=== PATIENT | female | born 1950 | race Asian ===

== ENCOUNTER 2020-05-10 11:01 | Outpatient (REF) | payer MEDICARE, SELFPAY ==
[2020-05-10 14:05] LABS: MANUAL DIFF FLAG NO
[2020-05-10 14:18] LABS: Basophils Absolute Auto 0.1 X10*3/uL (0.0-0.2); Basophils Percent Auto 0.8 % (0-2); Eosinophils Absolute Auto 0.2 X10*3/uL (0.0-0.4); Eosinophils Percent Auto 2.4 % (0-4); Hematocrit 38.1 % (37-47); Hemoglobin 11.8 g/dl (12.0-16.0); Imm Gran Abs Auto 0.03 X10*3/uL (0.00-0.03); Imm Gran Pct Auto 0.4 % (0.0-0.4); Lymphocytes Absolute Auto 2.5 X10*3/uL (1.2-4.9); Lymphocytes Percent Auto 29.7 % (20-40); Mean Corpuscular Hemoglobin 24.6 pg (27.0-33.0); Mean Corpuscular Volume 79.5 fL (80-98); Mean Platelet Volume 12.1 fL (9.4-12.3); Monocytes Absolute Auto 0.4 X10*3/uL (0.1-1.2); Monocytes Percent Auto 4.5 % (2-11); Neutrophils Absolute Auto 5.2 X10*3/uL (2.0-8.3); Neutrophils Percent Auto 62.2 % (45-73); Platelet Count 298 X10*3/uL (160-400); Red Blood Count 4.79 X10*6/uL (4.20-5.50); Red Cell Distribution Width 14.6 % (11.0-16.0); White Blood Count 8.4 X10*3/uL (4.8-10.8)
[2020-05-10 14:44] LABS: Alanine Aminotransferase 18 U/L (0-31); Albumin Level 4.1 g/dL (3.5-5.0); Alkaline Phosphatase 92 U/L (39-117); Anion Gap 16 (12-20); Aspartate Amino Transferase 21 U/L (5-31); Bilirubin Total 0.5 mg/dL (0.0-1.0); Blood Urea Nitrogen 21 mg/dL (9-16); Calcium 8.9 mg/dL (8.4-10.2); Carbon Dioxide 25 mmol/L (22-29); Chloride 104 mmol/L (96-108); Cholesterol 207 mg/dL; Estimated Glomerular Filt Rate > 60; Glucose Fasting 77 mg/dL (60-99); HDL Cholesterol 62 mg/dL; LDL Cholesterol Calculated 130 mg/dl; Potassium 4.2 mmol/L (3.3-5.1); Sodium 141 mmol/L (135-145); Total Protein 7.2 g/dL (6.5-8.0); Triglycerides 76 mg/dL
[2020-05-10 15:04] LABS: TSH reflex Free T4 2.36 uIU/mL (0.32-4.0)
== END 2020-05-10 11:02 | disposition home or self-care (01) ==
LOC: HO.HMGCLDS 11:01
PROVIDERS: Internal Medicine Medical Oncology; PCP Internal Medicine; Visit Provider Internal Medicine
DX: Z76.89 Persons encountering health services in other specified circumstances (principal); C34.90 Malignant neoplasm of unspecified part of unspecified bronchus or lung; T45.1X5A Adverse effect of antineoplastic and immunosuppressive drugs, initial encounter; I10 Essential (primary) hypertension; R29.898 Other symptoms and signs involving the musculoskeletal system; Z85.118 Personal history of other malignant neoplasm of bronchus and lung
CPT/HCPCS: 36415; 80053; 80061; 84443; 85025

== ENCOUNTER → 2020-05-20 10:42 | Outpatient (BNV) | payer MEDICARE, SELFPAY | PROVIDERS: Visit Provider Internal Medicine Medical Oncology | DX: C34.11 Malignant neoplasm of upper lobe, right bronchus or lung (principal) | CPT/HCPCS: 99213; 99214 ==

== ENCOUNTER 2020-09-06 13:16 | Outpatient (REF) | payer MEDICARE, SELFPAY ==
--- NOTE | ~2020-09-06 | XR_ITS ---
EXAMINATION: XR LUMBOSACRAL SPINE CLINICAL INFORMATION: Low back pain. COMPARISON: None TECHNIQUE: Three views of the lumbosacral spine. FINDINGS: The vertebral bodies and posterior elements are normal. The disc spaces are preserved and the vertebral alignment is normal. The paraspinal soft tissues are normal. XR/XR lumbar spine 2-3V IMPRESSION: Unremarkable lumbar spine exam.
== END 2020-09-06 13:17 | disposition home or self-care (01) ==
LOC: HO.HMGCX 13:16
PROVIDERS: PCP Internal Medicine; Visit Provider Internal Medicine
DX: M54.5 Low back pain (principal)
CPT/HCPCS: 72100

== ENCOUNTER 2020-10-31 14:00 | Outpatient (REF) | payer MEDICARE, SELFPAY ==
--- NOTE | ~2020-10-31 | MM_ITS ---
EXAMINATION: BONE DENSITOMETRY CLINICAL INDICATION: Asymptomatic menopausal state. COMPARISON: None (current study represents initial baseline exam). TECHNIQUE: Using a [facility] [employer] DXA System (software version: 13.1) manufactured by [employer], dual-energy x-ray absorptiometry was performed of the lumbar spine and left hip. The images are of good technical quality. Summary results are attached. FINDINGS: AP SPINE L1-L4: BMD 1.082 g/cm2, Z-score 0.9, T-score -0.8, normal. LEFT FEMUR, NECK: BMD 0.847 g/cm2, Z-score 0.3, T-score -1.4, osteopenia. LEFT FEMUR, TOTAL: BMD 0.953 g/cm2, Z-score 1.0, T-score -0.4, normal. IDENTIFIED RISK FACTORS: Recurrent falls, low calcium intake, menopause. HISTORY OF FRACTURE: None listed. MEDICATIONS: Calcium supplements or multivitamin, vitamin D. MM/XR DEXA axial skeleton IMPRESSION: 1. DIAGNOSIS: Osteopenia based on the lowest T-score value of -1.4 in the femoral neck applying World Health Organization criteria. 2. 10-YEAR FRACTURE RISK PREDICTION, FRAX: Major osteoporotic fracture (clinical spine, forearm, hip or shoulder) 5.2%. Hip fracture 0.7%. 3. Treatment Recommendations: NOF guidelines recommend consideration for treatment in postmenopausal women and men age 50 and older presenting with the following: -A hip or vertebral (clinical or morphometric) fracture. -T-score less than or equal to -2.5 at the femoral neck or spine after appropriate evaluation to exclude secondary causes. -Low bone mass at the hip or spine and a 10-year fracture probability by FRAX of greater than or equal to 3% for hip fracture or greater than or equal to 20% for major osteoporotic fracture based on the [place] adapted WHO algorithm. 4. Other Recommendations: All treatment decisions require clinical judgment and consideration of individual patient factors, including patient preferences, comorbidities, previous drug use, risk factors not captured in the FRAX model (e.g. frailty, falls, vitamin D deficiency, increased bone turnover, interval significant decline in bone density) and possible under or overestimation of fracture risk by FRAX. Additional medical evaluation for secondary cause of low bone mineral density may be appropriate. FUTURE SCAN RECOMMENDATION: People with diagnosed cases of osteoporosis or at high risk for fracture should have regular bone mineral density tests. For patients eligible for Medicare, routine testing is allowed once every 2 years. The testing frequency can be increased to one year for patients who have rapidly progressing disease, those who are receiving or discontinuing medical therapy to restore bone mass, or have additional risk factors.
--- NOTE | ~2020-10-31 | MM_ITS ---
EXAMINATION: MM SCREENING DIGITAL BREAST TOMOSYNTHESIS, BILATERAL CLINICAL INFORMATION: Screening. Asymptomatic. The lifetime risk of breast cancer based on the Tyrer-Cuzick Model is 5%. COMPARISON: Mammography: 01/21/2009 TECHNIQUE: Digital breast tomosynthesis is performed in both the craniocaudal and mediolateral oblique views along with computer-aided detection (CAD). Synthesized 2D images are generated from the tomosynthesis. Additional left MLO view is provided. FINDINGS: There are scattered areas of fibroglandular density (ACR BI-RADS breast composition Category b). There are no significant masses, abnormal calcifications, or other abnormalities. Parenchymal pattern distribution is similar to prior remote exam. The axilla and skin contours are unremarkable. MM/MM tomosynthesis screening BI IMPRESSION: No mammographic evidence of malignancy. ASSESSMENT: BI-RADS 1: Negative RECOMMENDATION: Routine annual mammography screening. This patient's information was entered into a reminder system with a target due date for their next mammogram.
== END 2020-10-31 14:01 | disposition home or self-care (01) ==
LOC: HO.MAMMO 14:00
PROVIDERS: PCP Internal Medicine; Visit Provider Internal Medicine
DX: Z12.31 Encounter for screening mammogram for malignant neoplasm of breast (principal); Z13.820 Encounter for screening for osteoporosis; M85.80 Other specified disorders of bone density and structure, unspecified site; Z78.0 Asymptomatic menopausal state; Z79.899 Other long term (current) drug therapy
CPT/HCPCS: 77063; 77067; 77080

== ENCOUNTER 2021-04-09 10:49 | Outpatient (REF) | payer MEDICARE, SELFPAY ==
[2021-04-09 13:51] LABS: MANUAL DIFF FLAG NO
[2021-04-09 13:54] LABS: Basophils Absolute Auto 0.1 X10*3/uL (0.0-0.2); Basophils Percent Auto 1.2 % (0-2); Eosinophils Absolute Auto 0.3 X10*3/uL (0.0-0.4); Eosinophils Percent Auto 4.5 % (0-4); Hematocrit 38.7 % (37.0-47.0); Imm Gran Abs Auto 0.03 X10*3/uL (0.00-0.03); Imm Gran Pct Auto 0.4 % (0.0-0.4); Lymphocytes Absolute Auto 2.7 X10*3/uL (1.2-4.9); Lymphocytes Percent Auto 35.7 % (20-40); Mean Corpuscular Hemoglobin 24.6 pg (27.0-33.0); Mean Corpuscular Volume 79.5 fL (80.0-98.0); Mean Platelet Volume 12.1 fL (9.4-12.3); Monocytes Absolute Auto 0.4 X10*3/uL (0.1-1.2); Neutrophils Percent Auto 53.2 % (45-73); Platelet Count 301 X10*3/uL (160-400); Red Blood Count 4.87 X10*6/uL (4.20-5.50); Red Cell Distribution Width 14.9 % (11.0-16.0); White Blood Count 7.6 X10*3/uL (4.8-10.8)
[2021-04-09 14:05] LABS: Alanine Aminotransferase 16 U/L (0-31); Albumin Level 4.1 g/dL (3.5-5.0); Alkaline Phosphatase 93 U/L (39-117); Anion Gap 12 (12-20); Aspartate Amino Transferase 21 U/L (5-31); Bilirubin Total 0.5 mg/dL (0.0-1.0); Blood Urea Nitrogen 17 mg/dL (9-16); Calcium 9.5 mg/dL (8.4-10.2); Carbon Dioxide 28 mmol/L (22-29); Chloride 105 mmol/L (96-108); Estimated Glomerular Filt Rate > 60; Glucose Random 84 mg/dL (60-115); Potassium 4.3 mmol/L (3.3-5.1); Sodium 141 mmol/L (135-145); Total Protein 7.3 g/dL (6.5-8.0)
== END 2021-04-09 10:50 | disposition home or self-care (01) ==
LOC: HO.HMGCLDS 10:49
PROVIDERS: Visit Provider Internal Medicine
DX: R10.13 Epigastric pain (principal); G25.81 Restless legs syndrome; I10 Essential (primary) hypertension; M19.90 Unspecified osteoarthritis, unspecified site
CPT/HCPCS: 36415; 80053; 85025

== ENCOUNTER 2021-07-01 10:06 | Outpatient (REF) | payer MEDICARE, SELFPAY ==
--- NOTE | ~2021-07-01 | XR_ITS ---
EXAMINATION: XR CHEST CLINICAL INFORMATION: Chest pain. History of lobectomy. COMPARISON: Previous chest x-ray most recent [address] 2017 TECHNIQUE: 2 views of the chest were obtained. FINDINGS: There are postsurgical changes to the right hemithorax and elevation of the right hemidiaphragm. This is similar to previous exams. The cardiac and mediastinal contours are stable. The lungs are clear. There is no pleural effusion or pneumothorax. There are degenerative changes of the spine. XR/XR chest 2V IMPRESSION: Stable postsurgical changes to the right hemithorax and elevation of the right hemidiaphragm. No evidence for acute disease in the chest.
[2021-07-01 11:28] LABS: MANUAL DIFF FLAG NO
[2021-07-01 11:58] LABS: Basophils Absolute Auto 0.1 X10*3/uL (0.0-0.2); Basophils Percent Auto 0.6 % (0-2); Eosinophils Absolute Auto 0.1 X10*3/uL (0.0-0.4); Eosinophils Percent Auto 1.3 % (0-4); Hemoglobin 12.3 g/dl (12.0-16.0); Imm Gran Abs Auto 0.02 X10*3/uL (0.00-0.03); Imm Gran Pct Auto 0.2 % (0.0-0.4); Lymphocytes Percent Auto 23.4 % (20-40); Mean Corpuscular HGB Conc 30.8 g/dl (31.0-35.0); Mean Corpuscular Hemoglobin 23.9 pg (27.0-33.0); Mean Corpuscular Volume 77.7 fL (80.0-98.0); Monocytes Absolute Auto 0.6 X10*3/uL (0.1-1.2); Monocytes Percent Auto 6.5 % (2-11); Neutrophils Absolute Auto 5.9 x10*3/uL (2.0-8.3); Platelet Count 217 X10*3/uL (160-400); Red Blood Count 5.15 X10*6/uL (4.20-5.50); Red Cell Distribution Width 14.5 % (11.0-16.0); White Blood Count 8.7 X10*3/uL (4.8-10.8)
[2021-07-01 12:14] LABS: Troponin-I High Sensitivity 3.5 ng/L (<3.5-17.0)
[2021-07-01 12:18] LABS: Alanine Aminotransferase 23 U/L (0-31); Albumin Level 4.1 g/dL (3.5-5.0); Alkaline Phosphatase 97 U/L (39-117); Anion Gap 12 (12-20); Aspartate Amino Transferase 24 U/L (5-31); Bilirubin Total 0.7 mg/dL (0.0-1.0); Blood Urea Nitrogen 15 mg/dL (9-16); Calcium 9.6 mg/dL (8.4-10.2); Carbon Dioxide 29 mmol/L (22-29); Chloride 98 mmol/L (96-108); Estimated Glomerular Filt Rate > 60; Glucose Random 86 mg/dL (60-115); Potassium 3.7 mmol/L (3.3-5.1); Sodium 135 mmol/L (135-145); Total Protein 7.5 g/dL (6.5-8.0)
== END 2021-07-01 10:07 | disposition home or self-care (01) ==
LOC: HO.WFDLDS 10:06
PROVIDERS: PCP Internal Medicine; Visit Provider Family Medicine
DX: Z00.01 Encounter for general adult medical examination with abnormal findings (principal); R07.9 Chest pain, unspecified
CPT/HCPCS: 36415; 71046; 80053; 84484; 85025

== ENCOUNTER → 2021-10-15 14:02 | Outpatient (BNVA) | payer BC, MEDICARE, SELFPAY | PROVIDERS: PCP Internal Medicine; Referring Provider Internal Medicine; Visit Provider Internal Medicine Cardiovascular Disease | DX: R00.2 Palpitations (principal); I10 Essential (primary) hypertension; R06.00 Dyspnea, unspecified | CPT/HCPCS: 99202 ==

== ENCOUNTER → 2021-11-06 08:39 | Outpatient (REF) | payer MEDICARE, SELFPAY ==
--- NOTE | 2021-11-06 08:51 | CA_ITS ---
Transthoracic Echocardiogram Patient (Last, First, Middle): Christi Bonds, Gender: Female Date of : 1950 Age: 71 Procedure Date: 11/06/2021 Procedure Type: Transthoracic Echocardiogram Location: OP Height: 147.32 cm Weight: 63.5 kg BSA: 1.57 m2 Heart Rate: bpm BP: 136 / 84 mmHg Hair [employer] Manager: SERAFIN Referring MD: Yoav Russo MD Symptoms: R06.00 - Dyspnea, unspecified Study Quality: Adequate ECG Rhythm: Sinus Conclusions: - The left ventricular systolic function is normal. The calculated ejection fraction is 69% by biplane method. - No obvious valvular pathology seen on this study. Findings Left Ventricle Normal left ventricular cavity size. There is normal left ventricular wall thickness. The left ventricular systolic function is normal. The calculated ejection fraction is 69% by biplane method. There is no evidence of regional wall motion abnormalities. Diastolic function is normal for age. Right Ventricle Normal right ventricular cavity size and systolic function. Atria Both atria are normal in size. Aortic Valve There is a normal trileaflet aortic valve. There is no aortic valve stenosis. There is trace (trivial) aortic valve regurgitation. Mitral Valve The mitral valve appears normal. There is trace mitral valve regurgitation. There is no mitral valve stenosis. Pulmonic Valve The pulmonic valve is likely normal. Tricuspid Valve There is trace tricuspid valve regurgitation. There is no evidence of pulmonary hypertension. Great Vessels The aortic annulus, sinuses of valsalva, and asc aorta are normal in size. Venous The inferior vena cava is normal in size and collapses greater than 50% with inspiration. Pericardium/Pleural There is no evidence of pericardial effusion. Prior Study Comparison No significant change compared to prior study dated: 11/10/2012. Recommendations, Care & Conclusions No obvious valvular pathology seen on this study. Measurements 2D Linear Measurements IVSd: 0.84 0.6-0.9/0.6-1.0 cm LVIDd: 4.18 3.9-5.3/4.2-5.9 cm LVIDd Index: 2.66 2.4-3.2/2.2-3.1 cm/m2 LVIDs: 2.52 2.0-3.6 cm LVPWd: 0.86 0.7-1.1 cm LA Diam: 3.20 2.7-3.8/3.0-4.0 cm LAIDs Index: 2.04 1.5-2.3 cm/m2 LV Mass: 134.61 67-162/88-224 g LV Mass Index: 85.74 43-95/49-115 g/m2 LVOT Diam: 1.70 3.0+(-)1.3 cm 2D Systolic Function EF 4C: 70.50 >55% EF 2C: 65.90 >55% EF BiP: 69.00 >55% Mitral Valve MV Pk E: 0.75 MV PK A: 0.81 MV Decel Time: 244.00 E/A: 0.90 E'Lateral: 7.62 E'Medial: 5.22 E/E' Med: 14.40 E/E' Lat: 9.90 PHT: 72.00 MVA PHT: 3.06 Decel Vermillion: 3.09 Aortic Valve AoV Pk Anderson: 1.21 AoV Mn Anderson: 0.72 AoV VTI: 0.26 AoV Pk Grad: 6.00 Aov Mn Grad: 3.00 CONNOR Cont.VTI: 2.18 LVOT LVOT Pk Anderson: 1.03 LVOT Mn Anderson: 0.68 LVOT VTI: 0.25 LVOT Pk Grad: 4.00 LVOT Mn Grad: 2.00 LVOT Diam: 1.70 LVOT Area: 2.27 Diastolic Function MV Pk E: 0.75 MV Pk A: 0.81 E/A: 0.90 E'Medial: 5.22 E/E' Med: 14.40 E' Laterial: 7.62 E/E' Lat: 9.90 Right Ventricle TAPSE (mm): 19.50 TVS' Anderson: 8.16 Tricuspid Valve TR Pk Anderson: 2.09 TR Pk Grad: 17.00 RA Press: 3.00 RVSP: 20.00 Great Vessels Aorta Sinus of Valsalva: 2.90 2.0-3.5 cm Ao Asc: 3.40 2.1-3.4 cm Updated in Other Vendor System with Status of Final Cayetano Duncan MD electronically signed on 11/07/2021 2:56:48 PM with status of Final
== END ==
LOC: HO.CARD 08:39
PROVIDERS: PCP Internal Medicine; Visit Provider Internal Medicine Cardiovascular Disease
DX: R00.2 Palpitations (principal); R06.00 Dyspnea, unspecified
CPT/HCPCS: 93306

== ENCOUNTER → 2021-12-23 07:02 | Outpatient (REF) | payer MEDICARE, SELFPAY ==
--- NOTE | ~2021-12-23 | NM_ITS ---
Myocardial perfusion study Indication: Shortness of breath evaluate for myocardial ischemia Technique: The patient was brought in for a Lexiscan perfusion study on 12/23/2021. Patient performed low-level exercise and was injected 0.4 mg of Lexiscan intravenously. Within a minute of injection, 24 mCi of sestamibi was given intravenously. Images were obtained using the SPECT gamma camera interlaced with the gating device. Images were obtained in supine position. Resting perfusion study was performed on 12/23/2021. Patient was administered 8 mCi of sestamibi intravenously at rest. Images were then obtained in supine position. Images obtained with and without CT attenuation. Total DLP 81 mGy-cm. Images were processed with the software and compared side to side in short axis, horizontal long axis and vertical long axis views. Findings: The stress perfusion study showed both attenuated as well as non attenuated images show normal uptake of radiotracer in all segments of LV myocardium. There is suggestion of left ventricular hypertrophy. The gated study shows normal LV systolic function with calculated LVEF of greater than 70%. LV cavity is normal in size. The gated study shows normal systolic wall thickening and contraction of segments. Resting study shows no change in perfusion pattern compared to stress perfusion study. Gating at rest reveals normal systolic wall motion with ejection fraction at greater than 70%. The findings are consistent with normal myocardial perfusion. NM/NM truong perf SPECT rest & str Impression: 1. Myocardial perfusion imaging study shows normal myocardial perfusion 2. Gated LVEF is greater than 70% 3. Transient ischemic dilatation not present EKG is nondiagnostic for ischemia
--- NOTE | 2021-12-23 09:56 | HM_ITS ---
* Total monitoring time 7 days. * Underlying rhythm is sinus. Average ventricular rate 81/Min. Range 48 to 145/Min. About 12% the time, rate > 100/Min. * Very rare supraventricular ectopy. Minimal burden. * No pauses or AV blocks. * Patient marker was used once with sinus rhythm. MTDD
--- NOTE | 2021-12-23 10:05 | CA_ITS ---
Acquisition Time: 2021-12-23 08:10:16 Total Exercise Time: 00:02:00 Test Indications: Dyspnea Medications: METOPROLOL NAPROXEN OMEPRAZOLE Protocol: LEXISCAN Max HR: 101 BPM 67% of Pred: 149 BPM Max BP: 134/072 mmHG Max Work Load: 1.0 METS Pharmacological stress test with Lexiscan injection, while sitting and kicking her legs, with mild to moderate sob, no chest discomfort, without arrythmia, with normotensive response to injection, with nondiagnostic EKG for ischemia. In recovery she was treated with Aminophylline 75mg IVP to reverse Lexiscan with resolution of sob. Nuclear images pending. Test reviewed with Dr Russo. Referred By: Yoav Russo Overread By: TRISTEN PRESSLEY
== END ==
LOC: HO.CARD 07:02
PROVIDERS: PCP Internal Medicine; Visit Provider Internal Medicine Cardiovascular Disease
DX: R00.2 Palpitations (principal); R06.00 Dyspnea, unspecified
CPT/HCPCS: 78452; 93017; 93242; A9500; J0280; J2785

== ENCOUNTER → 2022-05-07 14:24 | Outpatient (BNVA) | payer MEDICARE, SELFPAY | PROVIDERS: PCP Internal Medicine; Visit Provider Nurse Practitioner Family | DX: I10 Essential (primary) hypertension (principal); R55 Syncope and collapse; R06.00 Dyspnea, unspecified | CPT/HCPCS: 99212 ==

== ENCOUNTER 2022-05-27 12:59 | Outpatient (REF) | payer MEDICARE, SELFPAY ==
[2022-05-27 14:17] LABS: MANUAL DIFF FLAG NO
[2022-05-27 14:21] LABS: Basophils Absolute Auto 0.1 X10*3/uL (0.0-0.2); Basophils Percent Auto 1.2 % (0-2); Eosinophils Absolute Auto 0.3 X10*3/uL (0.0-0.4); Eosinophils Percent Auto 3.2 % (0-4); Hematocrit 38.5 % (37.0-47.0); Hemoglobin 12.3 g/dl (12.0-16.0); Imm Gran Abs Auto 0.02 X10*3/uL (0.00-0.03); Imm Gran Pct Auto 0.2 % (0.0-0.4); Lymphocytes Absolute Auto 3.1 X10*3/uL (1.2-4.9); Lymphocytes Percent Auto 35.8 % (20-40); Mean Corpuscular HGB Conc 31.9 g/dl (31.0-35.0); Mean Corpuscular Hemoglobin 24.8 pg (27.0-33.0); Mean Corpuscular Volume 77.8 fL (80.0-98.0); Mean Platelet Volume 12.2 fL (9.4-12.3); Monocytes Absolute Auto 0.5 X10*3/uL (0.1-1.2); Monocytes Percent Auto 6.1 % (2-11); Neutrophils Absolute Auto 4.6 x10*3/uL (2.0-8.3); Neutrophils Percent Auto 53.5 % (45-73); Platelet Count 291 X10*3/uL (160-400); Red Blood Count 4.95 X10*6/uL (4.20-5.50); Red Cell Distribution Width 14.9 % (11.0-16.0); White Blood Count 8.7 X10*3/uL (4.8-10.8)
[2022-05-27 14:53] LABS: Alanine Aminotransferase 14 U/L (0-31); Albumin Level 4.1 g/dL (3.5-5.0); Alkaline Phosphatase 93 U/L (39-117); Anion Gap 12 (12-20); Aspartate Amino Transferase 19 U/L (5-31); Bilirubin Total 0.4 mg/dL (0.0-1.0); Blood Urea Nitrogen 21 mg/dL (9-16); Calcium 9.4 mg/dL (8.4-10.2); Carbon Dioxide 25 mmol/L (22-29); Chloride 106 mmol/L (96-108); Estimated Glomerular Filt Rate > 60; Glucose Random 90 mg/dL (60-115); Potassium 4.3 mmol/L (3.3-5.1); Sodium 139 mmol/L (135-145); Total Protein 7.2 g/dL (6.5-8.0)
[2022-05-27 15:07] LABS: TSH reflex Free T4 1.83 uIU/mL (0.32-4.0); Vitamin B12 407 pg/mL (200-900)
[2022-05-28 11:28] LABS: LDL Cholesterol Direct 130 mg/dL (<100)
[2022-06-05 13:14] LABS: Vitamin D 25-OH, D2 <4 ng/mL; Vitamin D 25-OH, D3 20 ng/mL; Vitamin D 25-OH, Total 20 ng/mL (30-100)
== END 2022-05-27 13:00 | disposition home or self-care (01) ==
LOC: HO.HMGCLDS 12:59
PROVIDERS: PCP Internal Medicine; Visit Provider Internal Medicine
DX: I10 Essential (primary) hypertension (principal); R10.13 Epigastric pain; F41.1 Generalized anxiety disorder; D64.9 Anemia, unspecified; R53.83 Other fatigue
CPT/HCPCS: 36415; 80053; 82306; 82607; 83721; 84443; 85025

== ENCOUNTER 2022-09-29 13:02 | Outpatient (AMB) | payer MEDICARE, SELFPAY ==
--- NOTE | 2022-09-29 13:15 | A.OFFPC_ITS ---
Vital Signs 09/29/22 13:16 Height 4 ft 10.5 in Weight 136 lb 6 oz BMI 28.0 BP 130/72 Blood Pressure Location Rt brachial Position Sitting Pulse 66 Pulse Source Pulse Oximeter Pulse Oximetry (%) 99 Oxygen Delivery Method Room Air Intake Visit Reasons: 3m follow up Allergies penicillin V Allergy (Unknown, Verified 09/29/22 13:16) unknown lorazepam [From ATIVAN] Adverse Reaction (Unknown, Verified 09/29/22 13:16) HALLUCINATIONS Latex Gloves Allergy (Unknown, Uncoded 08/25/22 10:04) unknown Medication List - Last Reconciled 09/29/22 by Cary Man MD acetaminophen (Tylenol) 325 mg PO QID PRN amlodipine 5 mg PO DAILY ascorbic acid (vitamin C) 25 mg PO DAILY aspirin (Adult Aspirin Regimen) 81 mg PO DAILY cholecalciferol (vitamin D3) (Vitamin D3) 25 mcg PO DAILY folic acid 5 mg PO 2XW metoprolol succinate ER 25 mg PO DAILY 90 days omeprazole 20 mg PO DAILY 90 days Tobacco use date assessed: 09/29/22 Fall risk assessment: No Falls in past year Last assessed Fall Risk: 09/29/22 Dental Screening Dental Screen Date: 09/29/22 Did you have a dental visit in the last 12 months?: Yes Did you have a dental problem in the last 6 months where you did not have access to dental care?: No Was dental information given to patient?: No HPI 3m follow up HPI0 Details Patient is 72-year-old female came in today for her regular follow-up appointment on blood pressure Labs done recently reviewed her hemoglobin is normal now 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 which shows microcytic indices Patient is taking amlodipine 5 mg and metoprolol 25 mg, blood pressure is well controlled patient is tolerating medication GERD is stable with omeprazole 20 mg Patient will attend early week of January for follow-up now, she has cardiology appointment next month [facility] Medical History Hypertension Lung cancer Surgical History H/O section History of lung surgery Family History Mother Heart failure Father Heart attack Paternal Aunt Gallbladder cancer Social History Household Members: Spouse and Children Housing: House Are you a primary wound care coordinator to a significant other at home: No Do you presently have visiting nurse or other home services: No Alcohol intake: never Patient Tobacco Use Status: Never used Tobacco e-Cigarette/Vaping Use: Never Used service: No Current occupational status: retired Cognitive needs: No Hearing needs: No Vision needs: Yes Questionnaire PHQ-9 Over the last 2 weeks, how often have you been bothered by any of the following problems? 1. Little interest or pleasure in doing things: not at all 2. Feeling down, depressed, or hopeless: not at all 3. Trouble falling or staying asleep, or sleeping too much: not at all 4. Feeling tired or having little energy: several days 5. Poor appetite or overeating: not at all 6. Feeling bad about yourself - or that you are a failure or have let yourself or your family down: not at all 7. Trouble concentrating on things, such as reading the newspaper or watching television: not at all 8. Moving or speaking so slowly that other people could have noticed. Or the opposite - being so fidgety or restless that you have been moving around a lot more than usual: not at all 9. Thoughts that you would be better off or of hurting yourself in some way: not at all Total score: 1 Depression Screening Interpretation: Negative Source: Developed by Drs. Trey Bourgeois, Tia Doan, Arnav Llanos and colleagues, with an educational reyna from [employer]. Thrive Questionnaire Date Thrive assessed: 09/29/22 I am a: Patient What is your living situation today?: I have a steady place to live Within the past 12 months, did the food you bought not last and you didn't have the money to get more?: I choose not to answer this question Do you have trouble paying for medicines?: Yes Do you have trouble getting transportation to medical appointments?: No Do you have trouble paying your heating and electricity bill?: Yes Do you have trouble taking care of your child, family member or friend?: I choose not to answer this question Do you have trouble with day-to-day activities such as bathing, preparing meals, shopping, managing finances, etc.?: Yes Are you currently unemployed and looking for a job?: Yes Are you interested in more education?: Yes Please select the resources that you would like help with: Paying for medicine and Utilities AUDIT C Alcohol Use Questionnaire (AUDIT-C) 1. How often do you have a drink containing alcohol?: Never 3. How often do you have six or more drinks on one occasion?: Never Total Score: 0 Score Reviewed/Action Taken: Yes SEE-7 AMB Questionnaire SEE-7 Date SEE - 7 assessed: 09/29/22 Feeling nervous, anxious, or on edge: 0 = Not at all Not being able to stop or control worryin = Not at all Worrying too much about different things: 0 = Not at all Trouble relaxin = Not at all Being so restless that it is hard to sit still: 0 = Not at all Becoming easily annoyed or irritable: 0 = Not at all Feeling afraid as if something awful might happen: 0 = Not at all Total SEE-7 score (0-4 normal; 5-9 mild; 10-14 moderate; 15-21 severe): 0 Source: Developed by Drs. Trey Bourgeois, Tia Doan, Arnav Llanos and colleagues, with an educational reyna from [employer]. SEE-7 Assessment Billing SEE-7 Assessment Tool: SEE-7 Assessment 75481 Review of Systems Const Denies chills and Denies fever(s) ENT Denies epistaxis and Denies nasal discharge Card Denies chest pain Resp Denies chest congestion, Denies cough and Denies hemoptysis GI Denies diarrhea and Denies nausea Skin/Breast Denies rash Neuro Reports no additional complaints Psych Reports no additional complaints Endo Reports no additional complaints Physical exam (Primary Care) Vital Signs: Last Vital Signs Pulse 66 09/29/22 13:16 BP 130/72 09/29/22 13:16 Pulse Ox 99 09/29/22 13:16 Oxygen Delivery Method Room Air 09/29/22 13:16 BMI result Body Mass Index 28.0 Tobacco/Smoking Status: Tobacco use Status Tobacco use date assessed 09/29/22 09/29/22 13:17 Patient Tobacco Use Status Never used Tobacco 09/29/22 13:17 e-Cigarette/Vaping Use Never Used 09/29/22 13:17 PHQ-9: PHQ-9 Score PHQ-9: Total score 1 09/29/22 13:37 Depression Screening Interpretation: Negative Thrive Assessment: Date of Thrive Assessment Date Thrive assessed 09/29/22 09/29/22 13:37 Const General: cooperative, comfortable and no acute distress Orientation/consciousness: patient oriented x3 HENMT Head: Yes normocephalic Eyes General: appearance normal, both eyes and all related structures Neck Neck: Yes supple Resp Effort & Inspection: normal respiratory effort, no cough and no stridor Cardio Rhythm: regular rhythm Heart sounds: S1 normal heart sound present and S2 normal heart sound present Skin General skin exam: turgor normal Neuro General: patient oriented x3, tone normal and moves all extremities Extrem Right lower extremity: no edema Left lower extremity: no edema Assessment and Plan Assessment & Plan (1) Hypertension, essential: Code(s): I10 - Essential (primary) hypertension (2) Dyspepsia: Code(s): R10.13 - Epigastric pain (3) Arthrosis: Code(s): M19.90 - Unspecified osteoarthritis, unspecified site (4) Muscle cramping: Code(s): R25.2 - Cramp and spasm Plan Patient is 72-year-old female came in today for her regular follow-up appointment on blood pressure Labs done recently reviewed her hemoglobin is normal now 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 which shows microcytic indices Patient is taking amlodipine 5 mg and metoprolol 25 mg, blood pressure is well controlled patient is tolerating medication GERD is stable with omeprazole 20 mg Patient will attend early week of January for follow-up now, she has cardiology appointment next month Complaining of muscle cramping which is getting worse, I have prescribed muscle relaxer that she can take at night as needed Medications: New cyclobenzaprine 5 mg PO BEDTIME 30 tabs 0RF 30 days M54.9 - Dorsalgia, unspecified Coding Level of Care Code Est Pt Level 3 (87847) Diagnoses Hypertension, essential I10 Dyspepsia R10.13 Arthrosis M19.90 Muscle cramping R25.2 Additional Codes SEE-7 Assessment Billing - SEE-7 Assessment Tool: SEE-7 Assessment [id number] ([id number])
[2022-09-29 13:16] VITALS: BP 130/72; PULSE 66; O2SAT 99; BMI 28.0
== END 2022-09-29 13:48 | disposition home or self-care (01) ==
PROVIDERS: Visit Provider Internal Medicine
DX: I10 Essential (primary) hypertension (principal); R10.13 Epigastric pain; M19.90 Unspecified osteoarthritis, unspecified site; R25.2 Cramp and spasm
CPT/HCPCS: 99213

== ENCOUNTER 2022-10-28 14:42 | Outpatient (AMB) | payer MEDICARE, SELFPAY ==
[2022-10-28 14:47] VITALS: BP 140/82; PULSE 64; BMI 28.6
--- NOTE | 2022-10-28 14:47 | A.OFFVIS_ITS ---
Intake Vital Signs 10/28/22 14:47 Height 4 ft 10 in Weight 136 lb 10.986 oz BMI 28.6 BP 140/82 H Blood Pressure Location Rt brachial Position Sitting Pulse 64 Intake Visit Reasons: 6 month follow up Intake Note: 6 month f/u Allergies penicillin V Allergy (Unknown, Verified 10/28/22 15:01) unknown lorazepam [From ATIVAN] Adverse Reaction (Unknown, Verified 10/28/22 15:01) HALLUCINATIONS Latex Gloves Allergy (Unknown, Uncoded 08/25/22 10:04) unknown Medication List - Last Reconciled 10/28/22 by Yoav Russo MD acetaminophen (Tylenol) 325 mg PO QID PRN amlodipine 5 mg PO DAILY ascorbic acid (vitamin C) 25 mg PO DAILY aspirin (Adult Aspirin Regimen) 81 mg PO DAILY cholecalciferol (vitamin D3) (Vitamin D3) 25 mcg PO DAILY folic acid 5 mg PO 2XW metoprolol succinate ER 25 mg PO DAILY 90 days omeprazole 20 mg PO DAILY 90 days tizanidine 2 mg PO BEDTIME PRN 30 days HPI HPI Comments History of Present Illness Details Pleasant 72-year-old female who is here for few complaints. She has background history of hypertension and previously was on metoprolol and amlodipine. Amlodipine was discontinued and she does not remember having any side effects from amlodipine. She is seeing her blood pressure has been fluctuating and has been quite high at times. She has been using amlodipine as needed. She is taking Toprol 25 mg once a day. She also has palpitations which happen for few minutes every few days. 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 She is saying her breathing has been of since the cancer diagnosis and she has been short of breath. She gets out of breath easily when she walks. She is denying any chest discomfort. No bleeding issues. Her previous EKGs showing biphasic precordial T-wave changes. 10/28/2022: She returns for follow-up. On previous visit we referred her for echocardiography and nuclear perfusion imaging. Nuclear perfusion imaging was normal. She had 7 day Holter monitor which did not show any significant arrhythmia. Echocardiography showed normal left ventricular ejection fraction without any wall motion abnormalities with normal diastolic function. Normal right ventricular function without any valvular pathology. She returns and is complaining of some chest pains. These are random and happen without exertion. She can put 1 finger at the area where the pain happens and the pain is reproducible. I have reassured her that this is musculoskeletal pain. She has other complaints like Raynaud's and I have advised her that we can try to increase the amlodipine little bit to see if that helps the symptoms. She is saying she is doing better doing summertime and will think about it as winter comes. She has some dyspnea and fatigue with activities which is due to deconditioning given her cancer chemotherapy and staying in wheelchair for many months. [facility] Medical History Hypertension Lung cancer Surgical History History of lung surgery H/O section Family History Mother Heart failure Father Heart attack Paternal Aunt Gallbladder cancer Social History Household Members: Spouse and Children Housing: House Are you a primary residential care officer to a significant other at home: No Do you presently have visiting nurse or other home services: No Alcohol intake: never Patient Tobacco Use Status: Never used Tobacco e-Cigarette/Vaping Use: Never Used service: No Current occupational status: retired Cognitive needs: No Hearing needs: No Vision needs: Yes Review of Systems ENT Reports dizziness Card Denies chest pain, Denies chest pain at rest, Denies chest pain with activity, Denies rapid heart rate, Denies pedal edema, Denies edema, Denies leg edema, Denies lightheadedness, Denies palpitations, Denies dyspnea, Denies dyspnea on exertion and Denies orthopnea Resp Denies cough, Denies dyspnea and Denies dyspnea on exertion GI Denies hematochezia and Denies change in stool character Musc Denies abnormal gait, Reports limited range of motion, Reports muscle cramps, Denies muscle weakness, Denies numbness, Denies radiating pain into limb, Denies stiffness and Denies tingling Neuro Denies abnormal gait, Reports dizziness, Denies numbness and Denies tingling Endo Denies palpitations Physical Exam Vital Signs: Last Vital Signs Pulse 64 10/28/22 14:47 BP 140/82 H 10/28/22 14:47 BMI result Body Mass Index 28.6 GENERAL APPEARANCE: in no acute distress, pleasant. NECK: no carotid bruit, no jugular venous distention. SKIN: no suspicious lesions, warm and dry. HEART: no murmurs, regular rate and rhythm. LUNGS: clear to auscultation bilaterally. ABDOMEN: soft, nontender. EXTREMITIES: no edema. PERIPHERAL PULSES: equal. NEUROLOGIC: No gross deficits, AAO X 3 Office Procedures EKG Details: Sinus rhythm 64 beats per minute, normal axis, nonspecific T-wave changes, QTC 387 milliseconds. [id number], Complete Assessment & Plan Assessment & Plan (1) Dyspnea: Code(s): R06.00 - Dyspnea, unspecified (2) Chest pain: Code(s): R07.9 - Chest pain, unspecified Plan Very pleasant 72 year female who is here for follow-up. Blood pressure control is okay. She gets back pains with activity and currently is having some back pain and probably that is why blood pressure is mildly elevated. I have advised her that if Raynaud's the big issue then we can increase the amlodipine to 7.5 mg once a day. Currently she wants to wait and see how things are in winter time. She has non anginal chest pain. No further workup is required for that. Dyspnea and fatigue are due to deconditioning. I have advised her to increase her physical activity. Thank you for allowing me to participate in the care of your patient. Please feel free to contact me if you have any questions. Coding Level of Care Code Est Pt Level 1 (22324) Diagnoses Dyspnea R06.00 Chest pain R07.9 CPT Codes EKG - CPT: 69688-[id number], Complete ([id number])
== END 2022-10-28 15:33 | disposition home or self-care (01) ==
PROVIDERS: Visit Provider Internal Medicine Cardiovascular Disease
DX: R06.00 Dyspnea, unspecified (principal); R07.9 Chest pain, unspecified
CPT/HCPCS: 93010

== ENCOUNTER → 2022-10-28 14:42 | Outpatient (BNVA) | payer MEDICARE, SELFPAY | PROVIDERS: Visit Provider Internal Medicine Cardiovascular Disease | DX: R06.00 Dyspnea, unspecified (principal); R07.9 Chest pain, unspecified | CPT/HCPCS: 93005; 99211 ==

== ENCOUNTER 2023-03-03 09:18 | Outpatient (AMB) | payer MEDICARE, SELFPAY ==
--- NOTE | 2023-03-03 09:36 | A.OFFPC_ITS ---
Vital Signs 03/03/23 09:37 Height 4 ft 10.5 in Weight 139 lb 6 oz BMI 28.6 BP 132/70 Blood Pressure Location Rt brachial Position Sitting Pulse 65 Pulse Source Pulse Oximeter Pulse Oximetry (%) 97 Oxygen Delivery Method Room Air Intake Visit Reasons: 4 month f/u Allergies penicillin V Allergy (Unknown, Verified 03/03/23 09:37) unknown lorazepam [From ATIVAN] Adverse Reaction (Unknown, Verified 03/03/23 09:37) HALLUCINATIONS Latex Gloves Allergy (Unknown, Uncoded 08/25/22 10:04) unknown Medication List - Last Reconciled 03/03/23 by Cary Man MD acetaminophen (Tylenol) 325 mg PO QID PRN amlodipine 5 mg PO DAILY ascorbic acid (vitamin C) 25 mg PO DAILY aspirin (Adult Aspirin Regimen) 81 mg PO DAILY cholecalciferol (vitamin D3) (Vitamin D3) 25 mcg PO DAILY folic acid 5 mg PO 2XW metoprolol succinate ER 25 mg PO DAILY 90 days omeprazole 20 mg PO DAILY 90 days tizanidine 2 mg PO BEDTIME PRN 30 days Tobacco use date assessed: 03/03/23 Fall risk assessment: No Falls in past year Last assessed Fall Risk: 03/03/23 Dental Screening Dental Screen Date: 03/03/23 Did you have a dental visit in the last 12 months?: No Did you have a dental problem in the last 6 months where you did not have access to dental care?: No Was dental information given to patient?: No HPI 4 month f/u HPI Details Patient is 72-year-old female came in today for her regular follow-up appointment on blood pressure Patient is a survivor of [id number] lung cancer Anemia: 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 which shows microcytic indices Patient is taking amlodipine 5 mg and metoprolol 25 mg, blood pressure is well controlled patient is tolerating medication GERD is stable with omeprazole 20 mg Complaining of headache off and on, also admit that she is not paying attention to her eating habits and sleep Labs are due today Follow-up 6 months [facility] Medical History Lung cancer Hypertension Surgical History History of lung surgery H/O section Family History Mother Heart failure Father Heart attack Paternal Aunt Gallbladder cancer Social History Household Members: Spouse and Children Housing: House Are you a primary career technology teacher to a significant other at home: No Do you presently have visiting nurse or other home services: No Alcohol intake: never Patient Tobacco Use Status: Never used Tobacco e-Cigarette/Vaping Use: Never Used service: No Current occupational status: retired Cognitive needs: No Hearing needs: No Vision needs: Yes Questionnaire Thrive Questionnaire Date Thrive assessed: 09/29/22 AUDIT C Alcohol Use Questionnaire (AUDIT-C) 1. How often do you have a drink containing alcohol?: Never 3. How often do you have six or more drinks on one occasion?: Never Total Score: 0 Score Reviewed/Action Taken: Yes SEE-7 AMB Questionnaire SEE-7 Date SEE - 7 assessed: 09/29/22 Source: Developed by Drs. Trey Bourgeois, Tia Doan, Arnav Llanos and colleagues, with an educational reyna from [employer]. Review of Systems Const Denies chills and Denies fever(s) ENT Denies epistaxis and Denies nasal discharge Card Denies chest pain Resp Denies chest congestion, Denies cough and Denies hemoptysis GI Denies diarrhea and Denies nausea Skin/Breast Denies rash Neuro Reports no additional complaints Psych Reports no additional complaints Endo Reports no additional complaints Physical exam (Primary Care) Vital Signs: Last Vital Signs Pulse 65 03/03/23 09:37 BP 132/70 03/03/23 09:37 Pulse Ox 97 03/03/23 09:37 Oxygen Delivery Method Room Air 03/03/23 09:37 BMI result Body Mass Index 28.6 Tobacco/Smoking Status: Tobacco use Status Tobacco use date assessed 03/03/23 03/03/23 09:38 Patient Tobacco Use Status Never used Tobacco 03/03/23 09:38 e-Cigarette/Vaping Use Never Used 03/03/23 09:38 Thrive Assessment: Date of Thrive Assessment Date Thrive assessed 09/29/22 03/03/23 09:38 Const General: cooperative, comfortable and no acute distress Orientation/consciousness: patient oriented x3 HENMT Head: Yes normocephalic Eyes General: appearance normal, both eyes and all related structures Neck Neck: Yes supple Resp Effort & Inspection: normal respiratory effort, no cough and no stridor Cardio Rhythm: regular rhythm Heart sounds: S1 normal heart sound present and S2 normal heart sound present Skin General skin exam: turgor normal Neuro General: patient oriented x3, tone normal and moves all extremities Extrem Right lower extremity: no edema Left lower extremity: no edema Assessment and Plan Assessment & Plan (1) Anxiety, generalized: Code(s): F41.1 - Generalized anxiety disorder (2) Anemia: Code(s): D64.9 - Anemia, unspecified Qualifiers: Anemia type: other cause Other causes of anemia: chronic disease, other Qualified Code(s): D63.8 - Anemia in other chronic diseases classified elsewhere (3) Dyspepsia: Code(s): R10.13 - Epigastric pain (4) Non-small cell lung cancer: Code(s): C34.90 - Malignant neoplasm of unspecified part of unspecified bronchus or lung Qualifiers: Laterality: unspecified laterality Qualified Code(s): C34.90 - Malignant neoplasm of unspecified part of unspecified bronchus or lung (5) Hypertension, essential: Code(s): I10 - Essential (primary) hypertension (6) Arthrosis: Code(s): M19.90 - Unspecified osteoarthritis, unspecified site Plan Patient is 72-year-old female came in today for her regular follow-up appointment on blood pressure Patient is a survivor of [id number] lung cancer Anemia: 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 which shows microcytic indices Patient is taking amlodipine 5 mg and metoprolol 25 mg, blood pressure is well controlled patient is tolerating medication GERD is stable with omeprazole 20 mg Complaining of headache off and on, also admit that she is not paying attention to her eating habits and sleep Labs are due today Follow-up 6 months Orders: Orders Complete Blood Count Auto Diff Today C34.90 - Malignant neoplasm of unspecified part of unspecified bronchus or lung, D64.9 - Anemia, unspecified, F41.1 - Generalized anxiety disorder, I10 - Essential (primary) hypertension, R10.13 - Epigastric pain Comprehensive Met. Panel Today C34.90 - Malignant neoplasm of unspecified part of unspecified bronchus or lung, D64.9 - Anemia, unspecified, F41.1 - Generalized anxiety disorder, I10 - Essential (primary) hypertension, R10.13 - Epigastric pain LDL Cholesterol Direct Today C34.90 - Malignant neoplasm of unspecified part of unspecified bronchus or lung, D64.9 - Anemia, unspecified, F41.1 - Generalized anxiety disorder, I10 - Essential (primary) hypertension, R10.13 - Epigastric pain TSH reflex Free T4 Today C34.90 - Malignant neoplasm of unspecified part of unspecified bronchus or lung, D64.9 - Anemia, unspecified, F41.1 - Generalized anxiety disorder, I10 - Essential (primary) hypertension, R10.13 - Epigastric pain Vitamin B12 Today C34.90 - Malignant neoplasm of unspecified part of unspecified bronchus or lung, D64.9 - Anemia, unspecified, F41.1 - Generalized anxiety disorder, I10 - Essential (primary) hypertension, R10.13 - Epigastric pain Vitamin D 25-OH (D2 and D3) Today C34.90 - Malignant neoplasm of unspecified part of unspecified bronchus or lung, D64.9 - Anemia, unspecified, F41.1 - Generalized anxiety disorder, I10 - Essential (primary) hypertension, R10.13 - Epigastric pain Coding Level of Care Code Est Pt Level 4 (16751) Diagnoses Anxiety, generalized F41.1 Anemia in other chronic diseases classified elsewhere D63.8 Anemia type: other cause Other causes of anemia: chronic disease, other Dyspepsia R10.13 Non-small cell lung cancer, unspecified laterality C34.90 Laterality: unspecified laterality Hypertension, essential I10 Arthrosis M19.90
[2023-03-03 09:37] VITALS: BP 132/70; PULSE 65; O2SAT 97; BMI 28.6
== END 2023-03-03 11:20 | disposition home or self-care (01) ==
PROVIDERS: PCP Internal Medicine; Visit Provider Internal Medicine
DX: F41.1 Generalized anxiety disorder (principal); D63.8 Anemia in other chronic diseases classified elsewhere; R10.13 Epigastric pain; C34.90 Malignant neoplasm of unspecified part of unspecified bronchus or lung; I10 Essential (primary) hypertension; M19.90 Unspecified osteoarthritis, unspecified site
CPT/HCPCS: 99214

== ENCOUNTER 2023-03-03 10:05 | Outpatient (REF) | payer MEDICARE, SELFPAY ==
[2023-03-03 13:41] LABS: MANUAL DIFF FLAG NO
[2023-03-03 13:47] LABS: White Blood Count 8.3 X10*3/uL (4.8-10.8)
[2023-03-03 13:48] LABS: Basophils Absolute Auto 0.1 X10*3/uL (0.0-0.2); Eosinophils Absolute Auto 0.1 X10*3/uL (0.0-0.4); Eosinophils Percent Auto 1.7 % (0-4); Hematocrit 39.9 % (37.0-47.0); Hemoglobin 12.6 g/dl (12.0-16.0); Imm Gran Abs Auto 0.02 X10*3/uL (0.00-0.03); Imm Gran Pct Auto 0.2 % (0.0-0.4); Lymphocytes Absolute Auto 2.7 X10*3/uL (1.2-4.9); Mean Corpuscular HGB Conc 31.6 g/dl (31.0-35.0); Mean Corpuscular Hemoglobin 25.5 pg (27.0-33.0); Mean Corpuscular Volume 80.6 fL (80.0-98.0); Mean Platelet Volume 11.9 fL (9.4-12.3); Monocytes Absolute Auto 0.4 X10*3/uL (0.1-1.2); Monocytes Percent Auto 5.1 % (2-11); Platelet Count 282 X10*3/uL (160-400); Red Blood Count 4.95 X10*6/uL (4.20-5.50); Red Cell Distribution Width 14.8 % (11.0-16.0)
[2023-03-03 14:09] LABS: Alanine Aminotransferase 17 U/L (0-31); Alkaline Phosphatase 100 U/L (39-117); Anion Gap 12 (12-20); Aspartate Amino Transferase 20 U/L (5-31); Bilirubin Total 0.6 mg/dL (0.0-1.0); Blood Urea Nitrogen 14 mg/dL (9-16); Calcium 9.6 mg/dL (8.4-10.2); Carbon Dioxide 29 mmol/L (22-29); Chloride 104 mmol/L (96-108); Estimated Glomerular Filt Rate > 60; Glucose Random 89 mg/dL (60-115); Potassium 4.3 mmol/L (3.3-5.1); Sodium 141 mmol/L (135-145); Total Protein 7.9 g/dL (6.5-8.0)
[2023-03-03 14:26] LABS: TSH reflex Free T4 2.36 uIU/mL (0.32-4.0)
[2023-03-03 14:30] LABS: Vitamin B12 365 pg/mL (200-900)
[2023-03-04 14:02] LABS: LDL Cholesterol Direct 130 mg/dL (<100)
[2023-03-07 13:23] LABS: Vitamin D 25-OH, D2 <4 ng/mL; Vitamin D 25-OH, D3 23 ng/mL; Vitamin D 25-OH, Total 23 ng/mL (30-100)
== END 2023-03-03 10:06 | disposition home or self-care (01) ==
LOC: HO.HMGCLDS 10:05
PROVIDERS: PCP Internal Medicine; Visit Provider Internal Medicine
DX: F41.1 Generalized anxiety disorder (principal); D64.9 Anemia, unspecified; R10.13 Epigastric pain; C34.90 Malignant neoplasm of unspecified part of unspecified bronchus or lung; I10 Essential (primary) hypertension
CPT/HCPCS: 36415; 80053; 82306; 82607; 83721; 84443; 85025

== ENCOUNTER 2023-09-03 15:31 | Outpatient (AMB) | payer MEDICARE, SELFPAY ==
[2023-09-03 15:31] VITALS: BP 132/70; PULSE 65; O2SAT 97; BMI 28.6
--- NOTE | 2023-09-03 15:31 | A.OFFPC_ITS ---
Vital Signs 3 09/03/23 15:31 Height 4 ft 10.5 in Weight 139 lb 6 oz BMI 28.6 BP 132/70 Blood Pressure Location Rt brachial Position Sitting Pulse 65 Pulse Source Pulse Oximeter Pulse Oximetry (%) 97 Oxygen Delivery Method Room Air Intake Visit Reasons: F/u Allergies penicillin V Allergy (Unknown, Verified 09/03/23 15:32) unknown lorazepam [From ATIVAN] Adverse Reaction (Unknown, Verified 09/03/23 15:32) HALLUCINATIONS Latex Gloves Allergy (Unknown, Uncoded 08/25/22 10:04) unknown Medication List - Last Reconciled 09/03/23 by Cary Man MD acetaminophen (Tylenol) 325 mg PO QID PRN amlodipine 5 mg PO DAILY ascorbic acid (vitamin C) 25 mg PO DAILY aspirin (Adult Aspirin Regimen) 81 mg PO DAILY cholecalciferol (vitamin D3) (Vitamin D3) 25 mcg PO DAILY folic acid 5 mg PO 2XW metoprolol succinate ER 25 mg PO DAILY 90 days omeprazole 20 mg PO DAILY 90 days tizanidine 2 mg PO BEDTIME PRN 30 days Tobacco use date assessed: 09/03/23 Fall risk assessment: No Falls in past year Last assessed Fall Risk: 09/03/23 Dental Screening Dental Screen Date: 09/03/23 Did you have a dental visit in the last 12 months?: Yes Did you have a dental problem in the last 6 months where you did not have access to dental care?: No Was dental information given to patient?: Patient has dentist HPI F/u 2 HPI0 Details Patient is 72-year-old female came in today to be evaluated for right lower quadrant and epigastric pain Which has been happening for the past few days Patient says that when she have a bowel movement she feels better On examination today she is tender left upper quadrant with deep pressure And tender in epigastric area I am treating her with Levaquin and Flagyl for 7 days Patient is to start omeprazole She is to return in 7 days for follow-up appointment [facility] Medical History Lung cancer Hypertension Surgical History History of lung surgery H/O section Family History Mother Heart failure Father Heart attack Paternal Aunt Gallbladder cancer Social History Household Members: Spouse and Children Housing: House Are you a primary administrator health care facility to a significant other at home: No Do you presently have visiting nurse or other home services: No Alcohol intake: never Patient Tobacco Use Status: Never used Tobacco e-Cigarette/Vaping Use: Never Used service: No Current occupational status: retired Cognitive needs: No Hearing needs: No Vision needs: Yes Questionnaire PHQ-9 Over the last 2 weeks, how often have you been bothered by any of the following problems? 1. Little interest or pleasure in doing things: not at all 2. Feeling down, depressed, or hopeless: not at all 3. Trouble falling or staying asleep, or sleeping too much: not at all 4. Feeling tired or having little energy: several days 5. Poor appetite or overeating: not at all 6. Feeling bad about yourself - or that you are a failure or have let yourself or your family down: not at all 7. Trouble concentrating on things, such as reading the newspaper or watching television: not at all 8. Moving or speaking so slowly that other people could have noticed. Or the opposite - being so fidgety or restless that you have been moving around a lot more than usual: not at all 9. Thoughts that you would be better off or of hurting yourself in some way: not at all Total score: 1 Depression Screening Interpretation: Negative Depression Screening Done: Yes 15867 - PHQ-9 Billing: Yes Source: Developed by Drs. Trey Bourgeois, Tia Doan, Arnav Llanos and colleagues, with an educational reyna from [employer]. Thrive Questionnaire Date Thrive assessed: 09/03/23 I am a: Patient What is your living situation today?: I have a steady place to live Within the past 12 months, did the food you bought not last and you didn't have the money to get more?: Never true Within the past 12 months, did you worry whether your food would run out before you got money to buy more?: Never true Do you have trouble paying for medicines?: No Do you have trouble getting transportation to medical appointments?: No Do you have trouble paying your heating and electricity bill?: No Do you have trouble taking care of your child, family member or friend?: No Do you have trouble with day-to-day activities such as bathing, preparing meals, shopping, managing finances, etc.?: No Are you currently unemployed and looking for a job?: No Are you interested in more education?: No Please select the resources that you would like help with: None Currently or been in a relationship where the following occur: No concerns reported THRIVE Score: 0 AUDIT C Alcohol Use Questionnaire (AUDIT-C) 1. How often do you have a drink containing alcohol?: Never 3. How often do you have six or more drinks on one occasion?: Never Total Score: 0 Score Reviewed/Action Taken: Yes SEE-7 AMB Questionnaire SEE-7 Date SEE - 7 assessed: 09/03/23 Feeling nervous, anxious, or on edge: 0 = Not at all Not being able to stop or control worryin = Not at all Worrying too much about different things: 0 = Not at all Trouble relaxin = Not at all Being so restless that it is hard to sit still: 0 = Not at all Becoming easily annoyed or irritable: 0 = Not at all Feeling afraid as if something awful might happen: 0 = Not at all Total SEE-7 score (0-4 normal; 5-9 mild; 10-14 moderate; 15-21 severe): 0 Source: Developed by Drs. Trey Bourgeois, Tia Doan, Arnav Llanos and colleagues, with an educational reyna from [employer]. SEE-7 Assessment Billing SEE-7 Assessment Tool: SEE-7 Assessment 68384 Review of Systems Const Denies chills and Denies fever(s) ENT Denies epistaxis and Denies nasal discharge Card Denies chest pain Resp Denies chest congestion, Denies cough and Denies hemoptysis GI Denies diarrhea and Denies nausea Skin/Breast Denies rash Neuro Reports no additional complaints Psych Reports no additional complaints Endo Reports no additional complaints Physical exam (Primary Care) Vital Signs: Last Vital Signs Pulse 65 09/03/23 15:31 BP 132/70 09/03/23 15:31 Pulse Ox 97 09/03/23 15:31 Oxygen Delivery Method Room Air 09/03/23 15:31 BMI result Body Mass Index 28.6 Tobacco/Smoking Status: Tobacco use Status Tobacco use date assessed 09/03/23 09/03/23 15:33 Patient Tobacco Use Status Never used Tobacco 09/03/23 15:33 e-Cigarette/Vaping Use Never Used 09/03/23 15:33 PHQ-9: PHQ-9 Score PHQ-9: Total score 1 09/03/23 15:41 Depression Screening Interpretation: Negative Thrive Assessment: Date of Thrive Assessment Date Thrive assessed 09/03/23 09/03/23 15:33 Currently or been in a relationship where the following occur: No concerns reported Const General: cooperative, comfortable and no acute distress Orientation/consciousness: patient oriented x3 HENMT Head: Yes normocephalic Eyes General: appearance normal, both eyes and all related structures Neck Neck: Yes supple Resp Effort & Inspection: normal respiratory effort, no cough and no stridor Cardio Rhythm: regular rhythm Heart sounds: S1 normal heart sound present and S2 normal heart sound present GI Abdomen image: 2 1. Discomfort with pressure 2. Discomfort with pressure Skin General skin exam: turgor normal Neuro General: patient oriented x3, tone normal and moves all extremities Extrem Right lower extremity: no edema Left lower extremity: no edema Assessment and Plan Assessment & Plan (1) Epigastric pain: Code(s): R10.13 - Epigastric pain (2) Left lower quadrant pain: Code(s): R10.32 - Left lower quadrant pain Plan Patient is 72-year-old female came in today to be evaluated for right lower quadrant and epigastric pain Which has been happening for the past few days Patient says that when she have a bowel movement she feels better On examination today she is tender left upper quadrant with deep pressure And tender in epigastric area I am treating her with Levaquin and Flagyl for 7 days Patient is to start omeprazole She is to return in 7 days for follow-up appointment Medications: New 2 metronidazole 500 mg PO TID 7 days 21 tabs 0RF levofloxacin 500 mg PO DAILY 7 days 7 tabs 0RF Refilled 2 omeprazole 20 mg PO DAILY 90 days 90 caps 0RF Epigastric pain Coding Level of Care Code Est Pt Level 4 (22963) Diagnoses Epigastric pain R10.13 Left lower quadrant pain R10.32 Additional Codes SEE-7 Assessment Billing - SEE-7 Assessment Tool: SEE-7 Assessment 28167 ([id number])
== END 2023-09-03 15:50 | disposition home or self-care (01) ==
LOC: HO.HMGC 15:31
PROVIDERS: PCP Internal Medicine; Visit Provider Internal Medicine
DX: R10.13 Epigastric pain (principal); R10.32 Left lower quadrant pain
CPT/HCPCS: 99214

== ENCOUNTER 2023-09-16 08:16 | Outpatient (AMB) | payer MEDICARE, SELFPAY ==
--- NOTE | 2023-09-16 09:23 | MHC.PC.OV ---
Intake Visit Reasons: 1 Wk F/u meds [phone] Allergies penicillin V Allergy (Unknown, Verified 09/03/23 15:32) unknown lorazepam [From ATIVAN] Adverse Reaction (Unknown, Verified 09/03/23 15:32) HALLUCINATIONS Latex Gloves Allergy (Unknown, Uncoded 08/25/22 10:04) unknown Medication List - Last Reconciled 09/16/23 by Cary Man MD acetaminophen (Tylenol) 325 mg PO QID PRN amlodipine 5 mg PO DAILY ascorbic acid (vitamin C) 25 mg PO DAILY aspirin (Adult Aspirin Regimen) 81 mg PO DAILY cholecalciferol (vitamin D3) (Vitamin D3) 25 mcg PO DAILY folic acid 5 mg PO 2XW levofloxacin 500 mg PO DAILY 7 days metoprolol succinate ER 25 mg PO DAILY 90 days metronidazole 500 mg PO TID 7 days omeprazole 20 mg PO DAILY 90 days ondansetron HCl 4 mg PO Q8H PRN 7 days tizanidine 2 mg PO BEDTIME PRN 30 days Tobacco use date assessed: 09/03/23 Dental Screening Dental Screen Date: 09/03/23 HPI 1 Wk F/u meds [phone] HPI Details Patient is 73-year-old female, this is daily medicine for your visit. Patient was prescribed to antibiotics one week ago when she came into the office with pain left lower quadrant. On examination it seemed as if patient has developed diverticulitis she is feeling much better having normal BM now no N/V she will be travelling in 2 days to visit her grand children [facility] Medical History Lung cancer Hypertension Surgical History History of lung surgery H/O section Family History Mother Heart failure Father Heart attack Paternal Aunt Gallbladder cancer Social History Household Members: Spouse and Children Housing: House Are you a primary customer care manager to a significant other at home: No Do you presently have visiting nurse or other home services: No Alcohol intake: never Patient Tobacco Use Status: Never used Tobacco e-Cigarette/Vaping Use: Never Used service: No Current occupational status: retired Cognitive needs: No Hearing needs: No Vision needs: Yes Questionnaire Thrive Questionnaire Date Thrive assessed: 09/03/23 SEE-7 AMB Questionnaire SEE-7 Date SEE - 7 assessed: 09/03/23 Source: Developed by Drs. Trey Bourgeois, Tia Doan, Arnav Llanos and colleagues, with an educational reyna from [employer]. Review of Systems Const Denies chills and Denies fever(s) ENT Denies epistaxis and Denies nasal discharge Card Denies chest pain Resp Denies chest congestion, Denies cough and Denies hemoptysis GI Denies diarrhea and Denies nausea Skin/Breast Denies rash Neuro Reports no additional complaints Psych Reports no additional complaints Endo Reports no additional complaints Physical exam (Primary Care) Tobacco/Smoking Status: Tobacco use Status Tobacco use date assessed 09/03/23 09/16/23 09:24 Patient Tobacco Use Status Never used Tobacco 09/16/23 09:24 e-Cigarette/Vaping Use Never Used 09/16/23 09:24 Thrive Assessment: Date of Thrive Assessment Date Thrive assessed 09/03/23 09/16/23 09:24 Telehealth Telehealth Telehealth Platform: [facility] Location of provider rendering services: practice address Location of patient: address on file Patient Identification confirmed using: Name, : Yes Telehealth method: voice only Patient verbally consented to treatment: Yes Patient verbally consented to billing insurance company: Yes Minutes spent on Phone/Video with Pt.: 13 Assessment and Plan Assessment & Plan (1) Left lower quadrant pain: Code(s): R10.32 - Left lower quadrant pain Plan Patient is 73-year-old female, this is daily medicine for your visit. Patient was prescribed to antibiotics one week ago when she came into the office with pain left lower quadrant. On examination it seemed as if patient has developed diverticulitis she is feeling much better having normal BM now no N/V she will be travelling in 2 days to visit her grand children Coding Level of Care Code Tele Est Pt Level 3 (76036) Diagnoses Left lower quadrant pain R10.32
== END 2023-09-16 09:45 | disposition home or self-care (01) ==
PROVIDERS: PCP Internal Medicine; Visit Provider Internal Medicine
DX: R10.32 Left lower quadrant pain (principal)
CPT/HCPCS: 99442

== ENCOUNTER 2023-09-20 10:07 | Outpatient (AMB) | payer MEDICARE, SELFPAY ==
[2023-09-20 10:22] VITALS: BP 100/64; PULSE 72; BMI 29.0
--- NOTE | 2023-09-20 10:22 | MHC.OFFVIS ---
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 Accompanied by: Significant Other Allergies penicillin V Allergy (Unknown, Verified 09/03/23 15:32) unknown lorazepam [From ATIVAN] Adverse Reaction (Unknown, Verified 09/03/23 15:32) HALLUCINATIONS Latex Gloves Allergy (Unknown, Uncoded 08/25/22 10:04) unknown Medication List - Last Reconciled 09/20/23 by Yoav Russo MD acetaminophen (Tylenol) 325 mg PO QID PRN amlodipine 5 mg PO DAILY ascorbic acid (vitamin C) 25 mg PO DAILY aspirin (Adult Aspirin Regimen) 81 mg PO DAILY cholecalciferol (vitamin D3) (Vitamin D3) 25 mcg PO DAILY folic acid 5 mg PO 2XW levofloxacin 500 mg PO DAILY 7 days metoprolol succinate ER 25 mg PO DAILY 90 days metronidazole 500 mg PO TID 7 days omeprazole 20 mg PO DAILY 90 days ondansetron HCl 4 mg PO Q8H PRN 7 days tizanidine 2 mg PO BEDTIME PRN 30 days HPI Comments Details: Pleasant 73-year-old female who is here for few complaints. She has background history of hypertension and previously was on metoprolol and amlodipine. Amlodipine was discontinued and she does not remember having any side effects from amlodipine. She is seeing her blood pressure has been fluctuating and has been quite high at times. She has been using amlodipine as needed. She is taking Toprol 25 mg once a day. She also has palpitations which happen for few minutes every few days. 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 She is saying her breathing has been of since the cancer diagnosis and she has been short of breath. She gets out of breath easily when she walks. She is denying any chest discomfort. No bleeding issues. Her previous EKGs showing biphasic precordial T-wave changes. 10/28/2022: She returns for follow-up. On previous visit we referred her for echocardiography and nuclear perfusion imaging. Nuclear perfusion imaging was normal. She had 7 day Holter monitor which did not show any significant arrhythmia. Echocardiography showed normal left ventricular ejection fraction without any wall motion abnormalities with normal diastolic function. Normal right ventricular function without any valvular pathology. She returns and is complaining of some chest pains. These are random and happen without exertion. She can put 1 finger at the area where the pain happens and the pain is reproducible. I have reassured her that this is musculoskeletal pain. She has other complaints like Raynaud's and I have advised her that we can try to increase the amlodipine little bit to see if that helps the symptoms. She is saying she is doing better doing summertime and will think about it as winter comes. She has some dyspnea and fatigue with activities which is due to deconditioning given her cancer chemotherapy and staying in wheelchair for many months. 09/20/2023: She is here for follow-up. Taking medication regularly. Blood pressure is well controlled. ECG is normal. She has been getting some fatigue and tiredness and complaining of muscle aches and pains. Her vitamin-D level was 23 in February of 2023. She is taking oral vitamin-D. Denying any chest discomfort. No significant shortness of breath. [facility] Medical History Lung cancer Hypertension Surgical History History of lung surgery H/O section Family History Mother Heart failure Father Heart attack Paternal Aunt Gallbladder cancer Social History Household Members: Spouse and Children Housing: House Are you a primary direct support professional caregiver to a significant other at home: No Do you presently have visiting nurse or other home services: No Alcohol intake: never Patient Tobacco Use Status: Never used Tobacco e-Cigarette/Vaping Use: Never Used service: No Current occupational status: retired Cognitive needs: No Hearing needs: No Vision needs: Yes Review of Systems Const Denies chills, Denies fatigue, Denies fever(s), Denies frequent falls, Denies weakness, Denies weight gain and Denies weight loss ENT Denies dizziness Card Denies chest pain, Denies leg edema, Denies lightheadedness, Denies palpitations, Denies dyspnea and Denies dyspnea on exertion Resp Denies cough, Denies dyspnea and Denies dyspnea on exertion GI Denies hematochezia Musc Denies abnormal gait, Denies muscle weakness, Denies numbness, Denies radiating pain into limb and Denies tingling Neuro Denies abnormal gait, Denies dizziness, Denies frequent falls, Denies numbness, Denies tingling and Denies weakness Endo Denies fatigue and Denies palpitations Physical Exam Vital Signs: Last Vital Signs Pulse 72 09/20/23 10:22 BP 100/64 09/20/23 10:22 BMI result Body Mass Index 29.0 GENERAL APPEARANCE: in no acute distress, pleasant. NECK: no carotid bruit, no jugular venous distention. SKIN: no suspicious lesions, warm and dry. HEART: no murmurs, regular rate and rhythm. LUNGS: clear to auscultation bilaterally. ABDOMEN: soft, nontender. EXTREMITIES: no edema. PERIPHERAL PULSES: equal. NEUROLOGIC: No gross deficits, AAO X 3 Office Procedures EKG Details: Sinus rhythm 72 beats per minute, normal axis, normal ECG, QTC 402 milliseconds. [id number], Complete Assessment & Plan Assessment & Plan (1) Dyspnea: Code(s): R06.00 - Dyspnea, unspecified Category: Medical (2) Chest pain: Code(s): R07.9 - Chest pain, unspecified Category: Medical Plan Very pleasant 73 year female who is here for follow-up. Blood pressure control is okay. She has multiple complaints including stiffness, joint pains and muscle aches and pains. Most of these are related to musculoskeletal issues. Her vitamin-D level was low and she is on oral vitamin-D supplementation. For muscle cramps, we can arrange basic labs like potassium and magnesium level. We can also repeat the vitamin-D level. She is going to [place] and as she returns she will do the blood workup. Thank you for allowing me to participate in the care of your patient. Please feel free to contact me if you have any questions. Coding Level of Care Code Est Pt Level 3 (93538) Diagnoses Dyspnea R06.00 Chest pain R07.9 CPT Codes EKG - CPT: 52301-[id number], Complete ([id number])
== END 2023-09-20 10:56 | disposition home or self-care (01) ==
PROVIDERS: PCP Internal Medicine; Visit Provider Internal Medicine Cardiovascular Disease
DX: R06.00 Dyspnea, unspecified (principal); R07.9 Chest pain, unspecified
CPT/HCPCS: 93010; 99213

== ENCOUNTER → 2023-09-20 10:07 | Outpatient (BNVA) | payer MEDICARE, SELFPAY | PROVIDERS: PCP Internal Medicine; Visit Provider Internal Medicine Cardiovascular Disease | DX: I10 Essential (primary) hypertension (principal); R06.00 Dyspnea, unspecified; R07.9 Chest pain, unspecified | CPT/HCPCS: 93005; 99212 ==

== ENCOUNTER 2024-03-03 09:35 | Outpatient (REF) | payer MEDICARE, SELFPAY ==
[2024-03-03 10:43] LABS: Hematocrit 39.6 % (37.0-47.0); Hemoglobin 12.4 g/dl (12.0-16.0)
[2024-03-03 10:58] LABS: Potassium 4.2 mmol/L (3.3-5.1)
[2024-03-03 11:20] LABS: Alanine Aminotransferase 16 U/L (0-31); Albumin Level 3.8 g/dL (3.5-5.0); Alkaline Phosphatase 88 U/L (39-117); Anion Gap 11 (12-20); Aspartate Amino Transferase 26 U/L (5-31); Bilirubin Total 0.5 mg/dL (0.0-1.0); Blood Urea Nitrogen 11 mg/dL (9-16); Calcium 8.9 mg/dL (8.4-10.2); Carbon Dioxide 24 mmol/L (22-29); Chloride 108 mmol/L (96-108); Estimated Glomerular Filt Rate > 60; Glucose Random 86 mg/dL (60-115); Magnesium 2.1 mg/dL (1.6-2.6); Potassium 4.2 mmol/L (3.3-5.1); Sodium 139 mmol/L (135-145); Total Protein 7.7 g/dL (6.5-8.0); Vitamin D 25-OH Total 30.1 ng/mL (>30)
[2024-03-06 05:19] LABS: LDL Cholesterol Direct 129 mg/dL (<100)
== END 2024-03-03 09:36 | disposition home or self-care (01) ==
LOC: HO.LAB 09:35
PROVIDERS: Internal Medicine Cardiovascular Disease; PCP Internal Medicine; Visit Provider Internal Medicine
DX: F41.1 Generalized anxiety disorder (principal); I10 Essential (primary) hypertension; R25.2 Cramp and spasm; D64.9 Anemia, unspecified; R10.13 Epigastric pain; C34.90 Malignant neoplasm of unspecified part of unspecified bronchus or lung
CPT/HCPCS: 36415; 80053; 82306; 83721; 83735; 84132; 85014; 85018

== ENCOUNTER 2024-03-08 10:17 | Outpatient (AMB) | payer MEDICARE, SELFPAY ==
[2024-03-08 10:19] VITALS: BP 138/86; PULSE 69; O2SAT 97
--- NOTE | 2024-03-08 10:19 | MHC.PC.OV ---
Vital Signs 03/08/24 10:19 Height 4 ft 10.5 in Weight 146 lb BMI 30.0 BP 138/86 Blood Pressure Location Lt brachial Position Sitting Pulse 69 Pulse Source Pulse Oximeter Pulse Oximetry (%) 97 Oxygen Delivery Method Room Air Intake Visit Reasons: Annual PE Allergies penicillin V Allergy (Unknown, Verified 03/08/24 10:19) unknown lorazepam [From ATIVAN] Adverse Reaction (Unknown, Verified 03/08/24 10:19) HALLUCINATIONS Latex Gloves Allergy (Unknown, Uncoded 08/25/22 10:04) unknown Medication List - Last Reconciled 03/08/24 by Cary Man MD acetaminophen (Tylenol) 325 mg PO QID PRN amlodipine 5 mg PO DAILY ascorbic acid (vitamin C) 25 mg PO DAILY aspirin (Adult Aspirin Regimen) 81 mg PO DAILY cholecalciferol (vitamin D3) (Vitamin D3) 25 mcg PO DAILY folic acid 1 mg PO DAILY folic acid 5 mg PO 2XW metoprolol succinate ER 25 mg PO DAILY 90 days omeprazole 20 mg PO DAILY 90 days tizanidine 2 mg PO BEDTIME PRN 30 days Tobacco use date assessed: 03/08/24 Last assessed Fall Risk: 03/08/24 Dental Screening Dental Screen Date: 03/08/24 Did you have a dental problem in the last 6 months where you did not have access to dental care?: No HPI Annual PE HPI Details Patient is 72-year-old female came in today for her regular follow-up appointment on blood pressure Patient is a survivor of [id number] lung cancer Colonoscopy was [place] [address] Jack [facility] next 1 will be in 2028 Patient is due for mammogram and bone density , patient does not want to have a mammogram done Last test was done in 2020, which showed osteopenia Continued to have left lower quadrant discomfort off and on, I have placed a referral for to see Dr. 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 Diagnostic results - Hemoglobin: Normal range - LDL Cholesterol: 129, within acceptable range - Vitamin D: 30.1, within normal clinical range Patient Instructions - Continue current medication regimen as discussed. - Maintain vitamin D supplementation for bone health. - scheduling a bone density scan - Return for a follow-up in six months unless new symptoms arise. - Report any new or worsening joint pain or muscle cramps. - Continue healthy lifestyle and dietary habits. Review of Systems - Musculoskeletal: Reports muscle cramps and joint pain in shoulders and knees. - Gastrointestinal: Reports previous abdominal pain due to colitis, now intermittent and mild. - Cardiovascular: Denies new symptoms related to blood pressure management. - General: No fever no chills - Neurological: No headaches no dizziness - Ear nose throat: No sore throat no hearing difficulty no ear pain - Endocrine: No polyuria polydipsia no heat intolerance - Genitourinary: No dysuria - Skin: No new complaints Physical Exam General: Cooperative, healthy appearing, comfortable, no acute distress Orientation: Patient oriented x3 Limitations: Somewhat due to chronic back pain Head: Normal to inspection Ears: Within normal limit visually Nose: Normal external nose present Face and sinus: Normal facial exam Eyes: Appearance normal, extraocular movement intact pupils reactive Neck: Normal visual inspection and supple Respiratory: Normal respiratory effort and able to speak in complete sentences. Clear to auscultation, no stridor Breast exam within normal limit Cardiovascular: S1 and S2, blood pressure 138 systolic GI: Normal to inspection. Soft to palpation and nontender Skin: Turgor normal, no acute findings Neuro: Patient oriented x3, motor sensory intact, balance intact, tandem pass Extremities: Normal to inspection, muscle cramps noted, especially in the back and legs PFSH Medical History Lung cancer Hypertension Surgical History History of lung surgery H/O section Family History Mother Heart failure Father Heart attack Paternal Aunt Gallbladder cancer Social History Household Members: Spouse and Children Housing: House Are you a primary floor care technician to a significant other at home: No Do you presently have visiting nurse or other home services: No Alcohol intake: never Patient Tobacco Use Status: Never used Tobacco e-Cigarette/Vaping Use: Never Used service: No Current occupational status: retired Cognitive needs: No Hearing needs: No Vision needs: Yes Questionnaire PHQ-9 Over the last 2 weeks, how often have you been bothered by any of the following problems? 1. Little interest or pleasure in doing things: not at all 2. Feeling down, depressed, or hopeless: not at all 3. Trouble falling or staying asleep, or sleeping too much: not at all 4. Feeling tired or having little energy: several days 5. Poor appetite or overeating: not at all 6. Feeling bad about yourself - or that you are a failure or have let yourself or your family down: not at all 7. Trouble concentrating on things, such as reading the newspaper or watching television: not at all 8. Moving or speaking so slowly that other people could have noticed. Or the opposite - being so fidgety or restless that you have been moving around a lot more than usual: not at all 9. Thoughts that you would be better off or of hurting yourself in some way: not at all Total score: 1 Depression Screening Interpretation: Negative Depression Screening Done: Yes 43379 - PHQ-9 Billing: Yes Source: Developed by Drs. Trey Bourgeois, Tia Doan, Arnav Llanos and colleagues, with an educational reyna from [employer]. Thrive Questionnaire Date Thrive assessed: 03/08/24 I am a: Patient What is your living situation today?: I have a steady place to live Within the past 12 months, did the food you bought not last and you didn't have the money to get more?: Never true Within the past 12 months, did you worry whether your food would run out before you got money to buy more?: Never true Do you have trouble paying for medicines?: No Do you have trouble getting transportation to medical appointments?: No Do you have trouble paying your heating and electricity bill?: No Do you have trouble taking care of your child, family member or friend?: No Do you have trouble with day-to-day activities such as bathing, preparing meals, shopping, managing finances, etc.?: No Are you currently unemployed and looking for a job?: No Are you interested in more education?: No Please select the resources that you would like help with: None Currently or been in a relationship where the following occur: No concerns reported THRIVE Score: 0 AUDIT C Alcohol Use Questionnaire (AUDIT-C) 1. How often do you have a drink containing alcohol?: Never 3. How often do you have six or more drinks on one occasion?: Never Total Score: 0 Score Reviewed/Action Taken: Yes SEE-7 AMB Questionnaire SEE-7 Date SEE - 7 assessed: 03/08/24 Feeling nervous, anxious, or on edge: 0 = Not at all Not being able to stop or control worryin = Not at all Worrying too much about different things: 0 = Not at all Trouble relaxin = Not at all Being so restless that it is hard to sit still: 0 = Not at all Becoming easily annoyed or irritable: 0 = Not at all Feeling afraid as if something awful might happen: 0 = Not at all Total SEE-7 score (0-4 normal; 5-9 mild; 10-14 moderate; 15-21 severe): 0 Source: Developed by Drs. Trey Bourgeois, Tia Doan, Arnav Llanos and colleagues, with an educational reyna from [employer]. SEE-7 Assessment Billing SEE-7 Assessment Tool: SEE-7 Assessment 99250 Physical exam (Primary Care) Vital Signs: Last Vital Signs Pulse 69 03/08/24 10:19 BP 138/86 03/08/24 10:19 Pulse Ox 97 03/08/24 10:19 Oxygen Delivery Method Room Air 03/08/24 10:19 BMI result Body Mass Index 30.0 Tobacco/Smoking Status: Tobacco use Status Tobacco use date assessed 03/08/24 03/08/24 10:22 Patient Tobacco Use Status Never used Tobacco 03/08/24 10:19 e-Cigarette/Vaping Use Never Used 03/08/24 10:19 PHQ-9: PHQ-9 Score PHQ-9: Total score 1 03/08/24 10:30 Depression Screening Interpretation: Negative Thrive Assessment: Date of Thrive Assessment Date Thrive assessed 03/08/24 03/08/24 10:22 Currently or been in a relationship where the following occur: No concerns reported Coding Level of Care Code Est Pt Level 3 (18062) Est Pt Prev Care >65y(07058) Diagnoses Encounter for general adult medical examination with abnormal findings Z00.01 Left lower quadrant pain R10.32 Borderline osteopenia M85.80 Muscle cramping R25.2 Thalassemia trait D56.3 Dyspepsia R10.13 Lumbar pain M54.5 Non-small cell lung cancer, unspecified laterality C34.90 Laterality: unspecified laterality Mammogram declined Z53.20 Hypertension, essential I10 Additional Codes SEE-7 Assessment Billing - SEE-7 Assessment Tool: SEE-7 Assessment 12781 ([id number]) PHQ-9 - 08736 - PHQ-9 Billing: Yes ([id number]) Assessment & Plan Assessment & Plan (1) Encounter for general adult medical examination with abnormal findings: Code(s): Z00.01 - Encounter for general adult medical examination with abnormal findings Category: Medical (2) Left lower quadrant pain: Code(s): R10.32 - Left lower quadrant pain Category: Medical (3) Borderline osteopenia: Code(s): M85.80 - Other specified disorders of bone density and structure, unspecified site Category: Medical (4) Muscle cramping: Code(s): R25.2 - Cramp and spasm Category: Medical (5) 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 - Thalassemia minor Category: Medical (6) Dyspepsia: Code(s): R10.13 - Epigastric pain Category: Medical (7) Lumbar pain: Code(s): M54.5 - Low back pain Category: Medical (8) Non-small cell lung cancer: Code(s): C34.90 - Malignant neoplasm of unspecified part of unspecified bronchus or lung Category: Medical Qualifiers: Laterality: unspecified laterality Qualified Code(s): C34.90 - Malignant neoplasm of unspecified part of unspecified bronchus or lung (9) Mammogram declined: Code(s): Z53.20 - Procedure and treatment not carried out because of patient's decision for unspecified reasons Category: Medical (10) Hypertension, essential: Code(s): I10 - Essential (primary) hypertension Category: Medical Plan Patient is 72-year-old female came in today for her regular follow-up appointment on blood pressure Patient is a survivor of [id number] lung cancer Colonoscopy was [place] [address] Jack [facility] next 1 will be in 2028 Patient is due for mammogram and bone density , patient does not want to have a mammogram done Last test was done in 2020, which showed osteopenia Continued to have left lower quadrant discomfort off and on, I have placed a referral for to see Dr. 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 Diagnostic results - Hemoglobin: Normal range - LDL Cholesterol: 129, within acceptable range - Vitamin D: 30.1, within normal clinical range Patient Instructions - Continue current medication regimen as discussed. - Maintain vitamin D supplementation for bone health. - scheduling a bone density scan - Return for a follow-up in six months unless new symptoms arise. - Report any new or worsening joint pain or muscle cramps. - Continue healthy lifestyle and dietary habits. Orders: Orders XR DEXA axial skeleton Today M85.80 - Other specified disorders of bone density and structure, unspecified site Referrals Gastroenterology Referral R10.32 - Left lower quadrant pain Medications: Discontinued metronidazole Discontinued Reason: Doctor's Order 500 mg PO TID 7 days 21 tabs 0RF levofloxacin Discontinued Reason: Doctor's Order 500 mg PO DAILY 7 days 7 tabs 0RF ondansetron HCl Discontinued Reason: Doctor's Order 4 mg PO Q8H 7 days PRN 14 tabs 0RF nausea and vomiting R11.0 - Nausea
== END 2024-03-08 11:06 | disposition home or self-care (01) ==
PROVIDERS: PCP Internal Medicine; Visit Provider Internal Medicine
DX: Z00.00 Encounter for general adult medical examination without abnormal findings (principal); R10.32 Left lower quadrant pain; C34.90 Malignant neoplasm of unspecified part of unspecified bronchus or lung; M85.80 Other specified disorders of bone density and structure, unspecified site; R25.2 Cramp and spasm; D56.3 Thalassemia minor; R10.13 Epigastric pain; M54.50 Low back pain, unspecified; Z53.20 Procedure and treatment not carried out because of patient's decision for unspecified reasons; I10 Essential (primary) hypertension

== ENCOUNTER → 2024-03-08 10:17 | Outpatient (BNVA) | payer MEDICARE, SELFPAY | PROVIDERS: PCP Internal Medicine; Visit Provider Internal Medicine | DX: Z00.01 Encounter for general adult medical examination with abnormal findings (principal); R10.32 Left lower quadrant pain; M85.80 Other specified disorders of bone density and structure, unspecified site; R25.2 Cramp and spasm; D56.3 Thalassemia minor; R10.13 Epigastric pain; M54.50 Low back pain, unspecified; C34.90 Malignant neoplasm of unspecified part of unspecified bronchus or lung; I10 Essential (primary) hypertension | CPT/HCPCS: 96127; 99212; 99397 ==

== ENCOUNTER 2024-04-19 12:41 | Outpatient (AMB) | payer MEDICARE, MEDICAID, SELFPAY ==
--- NOTE | 2024-04-19 12:43 | MHC.OFFVIS ---
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 Accompanied by: Significant Other Allergies penicillin V Allergy (Unknown, Verified 03/08/24 10:19) unknown lorazepam [From ATIVAN] Adverse Reaction (Unknown, Verified 03/08/24 10:19) HALLUCINATIONS Latex Gloves Allergy (Unknown, Uncoded 08/25/22 10:04) unknown Medication List - Last Reconciled 04/19/24 by Yoav Russo MD acetaminophen (Tylenol) 325 mg PO QID PRN amlodipine 5 mg PO DAILY ascorbic acid (vitamin C) 25 mg PO DAILY aspirin (Adult Aspirin Regimen) 81 mg PO DAILY cholecalciferol (vitamin D3) (Vitamin D3) 25 mcg PO DAILY folic acid 1 mg PO DAILY folic acid 5 mg PO 2XW metoprolol succinate ER 25 mg PO DAILY 90 days omeprazole 20 mg PO DAILY 90 days tizanidine 2 mg PO BEDTIME PRN 30 days HPI Comments Details: Pleasant 73-year-old female who is here for few complaints. She has background history of hypertension and previously was on metoprolol and amlodipine. Amlodipine was discontinued and she does not remember having any side effects from amlodipine. She is seeing her blood pressure has been fluctuating and has been quite high at times. She has been using amlodipine as needed. She is taking Toprol 25 mg once a day. She also has palpitations which happen for few minutes every few days. 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 She is saying her breathing has been of since the cancer diagnosis and she has been short of breath. She gets out of breath easily when she walks. She is denying any chest discomfort. No bleeding issues. Her previous EKGs showing biphasic precordial T-wave changes. 10/28/2022: She returns for follow-up. On previous visit we referred her for echocardiography and nuclear perfusion imaging. Nuclear perfusion imaging was normal. She had 7 day Holter monitor which did not show any significant arrhythmia. Echocardiography showed normal left ventricular ejection fraction without any wall motion abnormalities with normal diastolic function. Normal right ventricular function without any valvular pathology. She returns and is complaining of some chest pains. These are random and happen without exertion. She can put 1 finger at the area where the pain happens and the pain is reproducible. I have reassured her that this is musculoskeletal pain. She has other complaints like Raynaud's and I have advised her that we can try to increase the amlodipine little bit to see if that helps the symptoms. She is saying she is doing better doing summertime and will think about it as winter comes. She has some dyspnea and fatigue with activities which is due to deconditioning given her cancer chemotherapy and staying in wheelchair for many months. 09/20/2023: She is here for follow-up. Taking medication regularly. Blood pressure is well controlled. ECG is normal. She has been getting some fatigue and tiredness and complaining of muscle aches and pains. Her vitamin-D level was 23 in February of 2023. She is taking oral vitamin-D. Denying any chest discomfort. No significant shortness of breath. 04/19/2024: Here for follow-up. Continues to have some cramps off and on and has been drinking tonic water with some improvement. Last LDL was 129. She does not take statins because of ? Travis syndrome. [facility] Medical History Lung cancer Hypertension Surgical History History of lung surgery H/O section Family History Mother Heart failure Father Heart attack Paternal Aunt Gallbladder cancer Social History Household Members: Spouse and Children Housing: House Are you a primary senior care manager to a significant other at home: No Do you presently have visiting nurse or other home services: No Alcohol intake: never Patient Tobacco Use Status: Never used Tobacco e-Cigarette/Vaping Use: Never Used service: No Current occupational status: retired Cognitive needs: No Hearing needs: No Vision needs: Yes Review of Systems Const Denies chills, Denies fatigue, Denies fever(s), Denies frequent falls, Denies weakness, Denies weight gain and Denies weight loss ENT Denies dizziness Card Denies chest pain, Denies leg edema, Denies lightheadedness, Denies palpitations, Denies dyspnea and Denies dyspnea on exertion Resp Denies cough, Denies dyspnea and Denies dyspnea on exertion GI Denies hematochezia Musc Denies abnormal gait, Denies muscle weakness, Denies numbness, Denies radiating pain into limb and Denies tingling Neuro Denies abnormal gait, Denies dizziness, Denies frequent falls, Denies numbness, Denies tingling and Denies weakness Endo Denies fatigue and Denies palpitations Physical Exam Vital Signs: Last Vital Signs Pulse 69 04/19/24 12:46 BP 120/64 04/19/24 12:46 BMI result Body Mass Index 29.1 GENERAL APPEARANCE: in no acute distress, pleasant. NECK: no carotid bruit, no jugular venous distention. SKIN: no suspicious lesions, warm and dry. HEART: no murmurs, regular rate and rhythm. LUNGS: clear to auscultation bilaterally. ABDOMEN: soft, nontender. EXTREMITIES: no edema. PERIPHERAL PULSES: equal. NEUROLOGIC: No gross deficits, AAO X 3 Assessment & Plan Assessment & Plan (1) Hypertension, essential: Code(s): I10 - Essential (primary) hypertension Category: Medical (2) Hyperlipidemia: Code(s): E78.5 - Hyperlipidemia, unspecified Category: Medical Plan Pleasant 73 year female who is here for follow-up. She has background of hypertension. Blood pressure is well controlled. Last LDL was 129. She does not take statins because of ? Travis syndrome. I have advised her to take ezetimibe 10 mg daily. She is agreeable and we will send the script for 30 day supply. If she tolerates it then I will give a 90 day supply in the future. Thank you for allowing me to participate in the care of your patient. Please feel free to contact me if you have any questions. Orders: Orders Lipid Panel 2 Months E78.5 - Hyperlipidemia, unspecified Medications: New ezetimibe 10 mg PO DAILY 30 tabs 0RF I10 - Essential (primary) hypertension Coding Level of Care Code Est Pt Level 4 (26735) Diagnoses Hypertension, essential I10 Hyperlipidemia E78.5
[2024-04-19 12:46] VITALS: BP 120/64; PULSE 69; BMI 29.1
== END 2024-04-19 13:08 | disposition home or self-care (01) ==
PROVIDERS: PCP Internal Medicine; Visit Provider Internal Medicine Cardiovascular Disease
DX: I10 Essential (primary) hypertension (principal); E78.5 Hyperlipidemia, unspecified
CPT/HCPCS: 99214

== ENCOUNTER → 2024-04-19 12:41 | Outpatient (BNVA) | payer MEDICARE, SELFPAY | PROVIDERS: PCP Internal Medicine; Visit Provider Internal Medicine Cardiovascular Disease | DX: I10 Essential (primary) hypertension (principal); E78.5 Hyperlipidemia, unspecified | CPT/HCPCS: 99212 ==

== ENCOUNTER 2024-04-21 09:50 | Outpatient (AMB) | payer MEDICARE, MEDICAID, SELFPAY ==
--- NOTE | 2024-04-21 09:49 | MHC.PC.OV ---
Vital Signs 04/21/24 10:14 Height 4 ft 10.5 in Weight 142 lb BMI 29.2 BP 120/80 Position Sitting Pulse 70 Intake Visit Reasons: Follow Up Allergies penicillin V Allergy (Unknown, Verified 03/08/24 10:19) unknown lorazepam [From ATIVAN] Adverse Reaction (Unknown, Verified 03/08/24 10:19) HALLUCINATIONS Latex Gloves Allergy (Unknown, Uncoded 08/25/22 10:04) unknown Medication List - Last Reconciled 04/21/24 by Cary Man MD acetaminophen (Tylenol) 325 mg PO QID PRN amlodipine 5 mg PO DAILY ascorbic acid (vitamin C) 25 mg PO DAILY aspirin (Adult Aspirin Regimen) 81 mg PO DAILY cholecalciferol (vitamin D3) (Vitamin D3) 25 mcg PO DAILY ezetimibe 10 mg PO DAILY folic acid 1 mg PO DAILY folic acid 5 mg PO 2XW metoprolol succinate ER 25 mg PO DAILY 90 days omeprazole 20 mg PO DAILY 90 days tizanidine 2 mg PO BEDTIME PRN 30 days Tobacco use date assessed: 03/08/24 Dental Screening Dental Screen Date: 03/08/24 HPI Follow Up HPI Details - The patient is a 73-year-old female presenting with multiple chronic conditions including urinary incontinence. 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 - Osteoarthritis discussed, impacting mobility and musculoskeletal health. Seeing car scrubber as well cholesterol medication through them - Balance issues noted as age-related, intensified by her chemotherapy history. - blood pressure well-controlled - also taking omeprazole for acid reflux Problem List - Urinary Incontinence - Osteopenia - Osteoarthritis - History of Chemotherapy - Hyperlipidemia - Myocardial involvement - Balance Disorders - Gerd Patient Instructions - Consider dietary adjustments and possible medication for hyperlipidemia as previously discussed. - Monitor blood pressure regularly to maintain normal levels. - Be aware of bone health; consider supplements or lifestyle changes if advised. - Stay engaged in physical activity as much as permissible for balance and musculoskeletal health. - Follow up with appointments for gastroenterology and cardiology as scheduled. - Adhere to any medication regimens previously initiated in consultation. Review of Systems - General: No fever no chills - Neurological: No headaches no dizziness - Ear nose throat: No sore throat no hearing difficulty no ear pain - Cardiovascular: No syncope, no chest pain, no palpitations - Gastrointestinal: No nausea vomiting or diarrhea - Endocrine: No polydipsia no heat intolerance - Genitourinary: No dysuria , no blood in urine Physical Exam - General: No acute distress - HEENT: No acute findings - Neck: Supple - Respiratory system: Able to talk in full sentences, no audible wheeze - cardiovascular: S1-S2 regular in rate and rhythm - Gastrointestinal: No pain - Extremities: No new findings - INSTRUMENTATION AND CONTROLS TECHNICIAN: Alert awake oriented x3 motor sensory intact - Skin: Normal turgor PFSH Medical History Lung cancer Hypertension Surgical History History of lung surgery H/O section Family History Mother Heart failure Father Heart attack Paternal Aunt Gallbladder cancer Social History Household Members: Spouse and Children Housing: House Are you a primary healthcare consultant to a significant other at home: No Do you presently have visiting nurse or other home services: No Alcohol intake: never Patient Tobacco Use Status: Never used Tobacco e-Cigarette/Vaping Use: Never Used service: No Current occupational status: retired Cognitive needs: No Hearing needs: No Vision needs: Yes Questionnaire Thrive Questionnaire Date Thrive assessed: 03/08/24 SEE-7 AMB Questionnaire SEE-7 Date SEE - 7 assessed: 03/08/24 Source: Developed by Drs. Trey Bourgeois, Tia Doan, Arnav Llanos and colleagues, with an educational reyna from [employer]. 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 Dyspepsia R10.13 Lumbar pain M54.5 Non-small cell lung cancer, unspecified laterality C34.90 Laterality: unspecified laterality Hypertension, essential I10 Dyspnea, unspecified type R06.00 Dyspnea type: unspecified Assessment & Plan Assessment & Plan (1) Urine, incontinence, stress female: Code(s): N39.3 - Stress incontinence (female) (male) Category: Medical (2) Borderline osteopenia: Code(s): M85.80 - Other specified disorders of bone density and structure, unspecified site Category: Medical (3) Muscle cramping: Code(s): R25.2 - Cramp and spasm Category: Medical (4) 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 - Thalassemia minor Category: Medical (5) Dyspepsia: Code(s): R10.13 - Epigastric pain Category: Medical (6) Lumbar pain: Code(s): M54.5 - Low back pain Category: Medical (7) Non-small cell lung cancer: Code(s): C34.90 - Malignant neoplasm of unspecified part of unspecified bronchus or lung Category: Medical Qualifiers: Laterality: unspecified laterality Qualified Code(s): C34.90 - Malignant neoplasm of unspecified part of unspecified bronchus or lung (8) Hypertension, essential: Code(s): I10 - Essential (primary) hypertension Category: Medical (9) Dyspnea: Code(s): R06.00 - Dyspnea, unspecified Category: Medical Qualifiers: Dyspnea type: unspecified Qualified Code(s): R06.00 - Dyspnea, unspecified Plan - The patient is a 73-year-old female presenting with multiple chronic conditions including urinary incontinence. 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 - Osteoarthritis discussed, impacting mobility and musculoskeletal health. Seeing car scrubber as well cholesterol medication through them - Balance issues noted as age-related, intensified by her chemotherapy history. - blood pressure well-controlled - also taking omeprazole for acid reflux Problem List - Urinary Incontinence - Osteopenia - Osteoarthritis - History of Chemotherapy - Hyperlipidemia - Myocardial involvement - Balance Disorders - Gerd Patient Instructions - Consider dietary adjustments and possible medication for hyperlipidemia as previously discussed. - Monitor blood pressure regularly to maintain normal levels. - Be aware of bone health; consider supplements or lifestyle changes if advised. - Stay engaged in physical activity as much as permissible for balance and musculoskeletal health. - Follow up with appointments for gastroenterology and cardiology as scheduled. - Adhere to any medication regimens previously initiated in consultation. Medications: New solifenacin (Vesicare) 5 mg PO DAILY 30 tabs 0RF Urine incontinence
[2024-04-21 10:14] VITALS: BP 120/80; PULSE 70; BMI 29.2
== END 2024-04-21 10:01 | disposition home or self-care (01) ==
LOC: HO.HMCC 09:50
PROVIDERS: PCP Internal Medicine; Visit Provider Internal Medicine
DX: R10.13 Epigastric pain (principal); N39.3 Stress incontinence (female) (male); M85.80 Other specified disorders of bone density and structure, unspecified site; C34.90 Malignant neoplasm of unspecified part of unspecified bronchus or lung; R25.2 Cramp and spasm; D56.3 Thalassemia minor; M54.50 Low back pain, unspecified; I10 Essential (primary) hypertension; R06.00 Dyspnea, unspecified

== ENCOUNTER → 2024-04-21 09:50 | Outpatient (BNVA) | payer MEDICARE, MEDICAID, SELFPAY | PROVIDERS: PCP Internal Medicine; Visit Provider Internal Medicine | DX: N39.3 Stress incontinence (female) (male) (principal); M85.80 Other specified disorders of bone density and structure, unspecified site; R25.2 Cramp and spasm; R10.13 Epigastric pain; M54.50 Low back pain, unspecified; C34.90 Malignant neoplasm of unspecified part of unspecified bronchus or lung; I10 Essential (primary) hypertension; R06.00 Dyspnea, unspecified | CPT/HCPCS: 99212 ==

== ENCOUNTER 2024-04-26 12:57 | Outpatient (REF) | payer MEDICARE, MEDICAID, SELFPAY ==
--- NOTE | ~2024-04-26 | MM_ITS ---
EXAMINATION: DXA BONE DENSITY AXIAL HISTORY: Estrogen deficiency TECHNIQUE: [facility] Dual energy absorptiometry (DEXA) of the lumbar spine, total left hip, and femoral neck was performed. COMPARISON: Comparison is made with the prior examination dated 04/30/2020. FINDINGS: The bone mineral density of the lumbar spine is 1.051 with a T-score of -1.1, and a Z-score of 0.7. This represents a BMD change of -2.9% compared to the prior exam. This is statistically significant. The bone mineral density of the left total hip is 0.998 with a T-score of -0.1, and a Z-score of 1.6. This represents a BMD change of 4.7% compared to the prior exam. This is statistically significant. The bone mineral density of the left femoral neck is 0.892 with a T-score of -1.1, and a Z-score of 0.8. This represents a BMD change of 5.3% compared to the prior exam. FRACTURE RISK: The FRAX index suggests a ten year probability of major osteoporotic fracture of 5.3%, and of hip fracture 0.7%. MM/XR DEXA axial skeleton IMPRESSION: Based on bone mineral density, and according to World Health Organization (WHO) criteria, the diagnosis is consistent with osteopenia. All bone density values are in grams per centimeter squared (g/cm2). Statistically, 68% of repeat scans fall within 1 SD (+/- 0.010 g/cm2 for AP spine L1-L4) and 1 SD (+/- 0.012 g/cm2 for femur total) FRAX is a trademark of the [employer] [employer] [facility] Met[employer] Disease, a World Health Organization (WHO) Collaborating Center. Electronically signed by: Trey Bishop MD 04/26/2024 02:05 PM EDT
== END 2024-04-26 12:58 | disposition home or self-care (01) ==
LOC: HO.MAMMO 12:57
PROVIDERS: PCP Internal Medicine; Visit Provider Internal Medicine
DX: Z13.820 Encounter for screening for osteoporosis (principal); M85.80 Other specified disorders of bone density and structure, unspecified site; E28.39 Other primary ovarian failure
CPT/HCPCS: 77080

== ENCOUNTER → 2024-04-26 13:00 | Outpatient (BNV) | payer MEDICARE, MEDICAID, SELFPAY | PROVIDERS: PCP Internal Medicine; Visit Provider Radiology Diagnostic Radiology | DX: E28.39 Other primary ovarian failure (principal) | CPT/HCPCS: 77080 ==

== ENCOUNTER 2024-05-18 09:27 | Outpatient (AMB) | payer MEDICARE, MEDICAID, SELFPAY ==
--- NOTE | 2024-05-18 09:29 | MHC.PC.OV ---
Intake Visit Reasons: Bladder Med Allergies [id number] Reductase Inhibitor Allergy (Severe, Verified 05/12/24 10:03) Muscle cramps penicillin V Allergy (Unknown, Verified 03/08/24 10:19) unknown lorazepam [From ATIVAN] Adverse Reaction (Unknown, Verified 03/08/24 10:19) HALLUCINATIONS Latex Gloves Allergy (Unknown, Uncoded 08/25/22 10:04) unknown Medication List - Last Reconciled 05/18/24 by Cary Man MD acetaminophen (Tylenol) 325 mg PO QID PRN amlodipine 5 mg PO DAILY ascorbic acid (vitamin C) 25 mg PO DAILY aspirin (Adult Aspirin Regimen) 81 mg PO DAILY cholecalciferol (vitamin D3) (Vitamin D3) 25 mcg PO DAILY ezetimibe 10 mg PO DAILY folic acid 1 mg PO DAILY folic acid 5 mg PO 2XW metoprolol succinate ER 25 mg PO DAILY 90 days omeprazole 20 mg PO DAILY 90 days solifenacin (Vesicare) 5 mg PO DAILY tizanidine 2 mg PO BEDTIME PRN 30 days Tobacco use date assessed: 03/08/24 Dental Screening Dental Screen Date: 03/08/24 HPI Bladder Med HPI Details History - The patient is a 73-year-old female presenting with a follow-up for medication tolerance. - patient finds her current regimen comfortable and free from side effects. she was started on Vesicare for urine incontience she would like to continue that, refill sent Problem List - stress urine incontence Patient Instructions - Continue the current medication regimen as it is well tolerated. - The medication will be provided for a three-month supply. - The patient should continue monitoring for any new side effects or changes in health. Review of Systems - General: No fever no chills - Neurological: No headaches no dizziness - Ear nose throat: No sore throat no hearing difficulty no ear pain - Cardiovascular: No syncope, no chest pain, no palpitations - Gastrointestinal: No nausea vomiting or diarrhea - Genitourinary: No dysuria , no blood in urine [facility] Medical History Lung cancer Hypertension Surgical History History of lung surgery H/O section Family History Mother Heart failure Father Heart attack Paternal Aunt Gallbladder cancer Social History Household Members: Spouse and Children Housing: House Are you a primary workforce investment act career manager to a significant other at home: No Do you presently have visiting nurse or other home services: No Alcohol intake: never Patient Tobacco Use Status: Never used Tobacco e-Cigarette/Vaping Use: Never Used service: No Current occupational status: retired Cognitive needs: No Hearing needs: No Vision needs: Yes Questionnaire Thrive Questionnaire Date Thrive assessed: 03/08/24 SEE-7 AMB Questionnaire SEE-7 Date SEE - 7 assessed: 03/08/24 Source: Developed by Drs. Trey Bourgeois, Tia Doan, Arnav Llanos and colleagues, with an educational reyna from [employer]. Physical exam (Primary Care) Tobacco/Smoking Status: Tobacco use Status Tobacco use date assessed 03/08/24 05/18/24 09:29 Patient Tobacco Use Status Never used Tobacco 05/18/24 09:29 e-Cigarette/Vaping Use Never Used 05/18/24 09:29 Thrive Assessment: Date of Thrive Assessment Date Thrive assessed 03/08/24 05/18/24 09:29 Telehealth Telehealth Telehealth Platform: [employer] Location of provider rendering services: practice address Location of patient: address on file Patient Identification confirmed using: Name, : Yes Telehealth method: voice only Patient verbally consented to treatment: Yes Patient verbally consented to billing insurance company: Yes Patient informed of any privacy concerns related to visit: Yes Minutes spent on Phone/Video with Pt.: 12 Coding Level of Care Code Tele Est Pt Level 3 (22026) Diagnoses Urine, incontinence, stress female N39.3 Assessment & Plan Assessment & Plan (1) Urine, incontinence, stress female: Code(s): N39.3 - Stress incontinence (female) (male) Category: Medical Plan History - The patient is a 73-year-old female presenting with a follow-up for medication tolerance. - patient finds her current regimen comfortable and free from side effects. she was started on Vesicare for urine incontience she would like to continue that, refill sent Problem List - stress urine incontence Patient Instructions - Continue the current medication regimen as it is well tolerated. - The medication will be provided for a three-month supply. - The patient should continue monitoring for any new side effects or changes in health. Medications: Refilled solifenacin (Vesicare) 5 mg PO DAILY 90 tabs 0RF Urine incontinence
== END 2024-05-18 09:49 | disposition home or self-care (01) ==
LOC: HO.HMCC 09:28
PROVIDERS: PCP Internal Medicine; Visit Provider Internal Medicine
DX: N39.3 Stress incontinence (female) (male) (principal)

== ENCOUNTER → 2024-05-18 09:27 | Outpatient (BNVA) | payer MEDICARE, MEDICAID, SELFPAY | PROVIDERS: PCP Internal Medicine; Visit Provider Internal Medicine ==

== ENCOUNTER 2024-09-05 12:24 | Outpatient (AMB) | payer MEDICARE, MEDICAID, SELFPAY ==
[2024-09-05 12:26] VITALS: BP 120/76; PULSE 63; O2SAT 98; BMI 27.9
--- NOTE | 2024-09-05 12:26 | MHC.PC.OV ---
Vital Signs 09/05/24 12:26 Height 4 ft 10.5 in Weight 136 lb BMI 27.9 BP 120/76 Blood Pressure Location Lt brachial Position Sitting Pulse 63 Pulse Source Pulse Oximeter Pulse Oximetry (%) 98 Oxygen Delivery Method Room Air Intake Visit Reasons: 6m follow up Automotive Designer Required: No Allergies Eaxlbli-[id number]-[id number] Reductase Inhibitor Allergy (Severe, Verified 09/05/24 12:30) Muscle cramps penicillin V Allergy (Unknown, Verified 09/05/24 12:30) unknown lorazepam (From ATIVAN) Adverse Reaction (Unknown, Verified 09/05/24 12:30) HALLUCINATIONS tizanidine Adverse Reaction (Unknown, Verified 09/05/24 12:51) Unknown Latex Gloves Allergy (Unknown, Uncoded 08/25/22 10:04) unknown Medication List - Last Reconciled 09/05/24 by Cary Man MD acetaminophen (Tylenol) 325 mg PO QID PRN amlodipine 5 mg PO DAILY ascorbic acid (vitamin C) 25 mg PO DAILY aspirin (Adult Aspirin Regimen) 81 mg PO DAILY cholecalciferol (vitamin D3) (Vitamin D3) 25 mcg PO DAILY ezetimibe 10 mg PO DAILY folic acid 1 mg PO DAILY folic acid 5 mg PO 2XW metoprolol succinate ER 25 mg PO DAILY 90 days omeprazole 20 mg PO DAILY 90 days solifenacin (Vesicare) 5 mg PO DAILY tizanidine 2 mg PO BEDTIME PRN 30 days Tobacco use date assessed: 03/08/24 Fall risk assessment: No Falls in past year Last assessed Fall Risk: 09/05/24 Dental Screening Dental Screen Date: 03/08/24 HPI 6m follow up HPI Details History - The patient is a 73-year-old female presenting with back pain. - Reports experiencing a lot of back issues with constant pain. - Onset occurred due to activities such as bending over, causing strain. - - Muscle relaxants have been taken irregularly; discussion occurred about adjusting to regular administration if needed. - bone density done showed osteopenia - blood pressure is stable patient is on amlodipine 5 mg and metoprolol 25 mg daily - GERD is stable with omeprazole - urge incontinence doing well with VESIcare 5 mg Medical History: - Hypertension - Osteopenia - History of lung cancer (undergoing chemotherapy) - urgent continence - chronic back pain Medications: - Tylenol for pain relief - Amlodipine for hypertension - Aspirin - Vitamin D, indicated for osteopenia - Zetia - Metoprolol - Omeprazole Social History: - Engages in activities such as gardening. - Importance of maintaining an active lifestyle discussed, including calcium-rich diet. Diagnostic Results: - Previous bone density scan in April showed osteopenia; no osteoporosis was noted. Problem List - Back pain - Osteopenia - Hypertension - urgent incontinence - chronic GERD - lipid disorder - back muscle spasm Patient Instructions - Continue muscle relaxant at night if needed; try cyclobenzaprine (Flexeril) as prescribed. - Remain active and engage in weight-bearing exercises. - Maintain a diet with adequate calcium-rich foods. - Caution advised during physical activities like gardening. - Follow medication regimen as discussed. Review of Systems - General: No fever no chills - Neurological: No headaches no dizziness - Ear nose throat: No sore throat no hearing difficulty no ear pain - Cardiovascular: No syncope, no chest pain, no palpitations - Gastrointestinal: No nausea vomiting or diarrhea Physical Exam General: No acute distress HEENT: No acute findings Neck: Supple Respiratory system: Able to talk in full sentences, no audible wheeze Cardiovascular: S1-S2 regular in rate and rhythm Gastrointestinal: Constant back pain, located at thoracolumbar area, no pain with percussion Extremities: No new findings OUTSIDE PLANT TECHNICIAN: Alert awake oriented x3 motor sensory intact Skin: Normal turgor PFSH Medical History Lung cancer Hypertension Surgical History History of lung surgery H/O section Family History Mother Heart failure Father Heart attack Paternal Aunt Gallbladder cancer Social History Household Members: Spouse and Children Housing: House Are you a primary home health care worker to a significant other at home: No Do you presently have visiting nurse or other home services: No Alcohol intake: never Patient Tobacco Use Status: Never used Tobacco e-Cigarette/Vaping Use: Never Used service: No Current occupational status: retired Cognitive needs: No Hearing needs: No Vision needs: Yes Questionnaire Thrive Questionnaire Date Thrive assessed: 01/22/25 SEE-7 AMB Questionnaire SEE-7 Date SEE - 7 assessed: 03/08/24 Source: Developed by DrsKathy Bourgeois, Tia Doan, Arnav Llanos and colleagues, with an educational reyna from [employer]. Physical exam (Primary Care) Vital Signs: Last Vital Signs Pulse 63 09/05/24 12:26 BP 120/76 09/05/24 12:26 Pulse Ox 98 09/05/24 12:26 Oxygen Delivery Method Room Air 09/05/24 12:26 BMI result Body Mass Index 27.9 Tobacco/Smoking Status: Tobacco use Status Tobacco use date assessed 03/08/24 09/05/24 12:26 Patient Tobacco Use Status Never used Tobacco 09/05/24 12:26 e-Cigarette/Vaping Use Never Used 09/05/24 12:26 Thrive Assessment: Date of Thrive Assessment Date Thrive assessed 03/08/24 09/05/24 12:26 Coding Level of Care Code Est Pt Level 4 (68468) Complex EM visit Add On G2211 Diagnoses Hypertension, essential I10 Borderline osteopenia M85.80 Lipid disorder E78.9 Urine, incontinence, stress female N39.3 Lumbar pain M54.5 Dyspepsia R10.13 Thalassemia trait D56.3 Non-small cell lung cancer, unspecified laterality C34.90 Laterality: unspecified laterality Assessment & Plan Assessment & Plan (1) Hypertension, essential: Code(s): I10 - Essential (primary) hypertension Category: Medical (2) Borderline osteopenia: Code(s): M85.80 - Other specified disorders of bone density and structure, unspecified site Category: Medical (3) Lipid disorder: Code(s): E78.9 - Disorder of lipoprotein metabolism, unspecified Category: Medical (4) Urine, incontinence, stress female: Code(s): N39.3 - Stress incontinence (female) (male) Category: Medical (5) Lumbar pain: Code(s): M54.5 - Low back pain Category: Medical (6) Dyspepsia: Code(s): R10.13 - Epigastric pain Category: Medical (7) 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 - Thalassemia minor Category: Medical (8) Non-small cell lung cancer: Code(s): C34.90 - Malignant neoplasm of unspecified part of unspecified bronchus or lung Category: Medical Qualifiers: Laterality: unspecified laterality Qualified Code(s): C34.90 - Malignant neoplasm of unspecified part of unspecified bronchus or lung Plan History - The patient is a 73-year-old female presenting with back pain. - Reports experiencing a lot of back issues with constant pain. - Onset occurred due to activities such as bending over, causing strain. - - Muscle relaxants have been taken irregularly; discussion occurred about adjusting to regular administration if needed. - bone density done showed osteopenia - blood pressure is stable patient is on amlodipine 5 mg and metoprolol 25 mg daily - GERD is stable with omeprazole - urge incontinence doing well with VESIcare 5 mg Medical History: - Hypertension - Osteopenia - History of lung cancer (undergoing chemotherapy) - urgent continence - chronic back pain Medications: - Tylenol for pain relief - Amlodipine for hypertension - Aspirin - Vitamin D, indicated for osteopenia - Zetia - Metoprolol - Omeprazole Social History: - Engages in activities such as gardening. - Importance of maintaining an active lifestyle discussed, including calcium-rich diet. Diagnostic Results: - Previous bone density scan in April showed osteopenia; no osteoporosis was noted. Problem List - Back pain - Osteopenia - Hypertension - urgent incontinence - chronic GERD - lipid disorder - back muscle spasm Patient Instructions - Continue muscle relaxant at night if needed; try cyclobenzaprine (Flexeril) as prescribed. - Remain active and engage in weight-bearing exercises. - Maintain a diet with adequate calcium-rich foods. - Caution advised during physical activities like gardening. - Follow medication regimen as discussed. Orders: Orders Comprehensive Met. Panel Today E78.5 - Hyperlipidemia, unspecified, I10 - Essential (primary) hypertension, M54.5 - Low back pain, M85.80 - Other specified disorders of bone density and structure, unspecified site, N39.3 - Stress incontinence (female) (male) Complete Blood Count Auto Diff Today E78.5 - Hyperlipidemia, unspecified, I10 - Essential (primary) hypertension, M54.5 - Low back pain, M85.80 - Other specified disorders of bone density and structure, unspecified site, N39.3 - Stress incontinence (female) (male) LDL Cholesterol Direct Today E78.5 - Hyperlipidemia, unspecified, I10 - Essential (primary) hypertension, M54.5 - Low back pain, M85.80 - Other specified disorders of bone density and structure, unspecified site, N39.3 - Stress incontinence (female) (male) TSH reflex Free T4 Today E78.5 - Hyperlipidemia, unspecified, I10 - Essential (primary) hypertension, M54.5 - Low back pain, M85.80 - Other specified disorders of bone density and structure, unspecified site, N39.3 - Stress incontinence (female) (male) Medications: New cholecalciferol (vitamin D3) (Vitamin D3) 25 mcg PO DAILY 90 tabs 3RF cyclobenzaprine 5 mg PO BEDTIME PRN 30 tabs 2RF muscle spasm Refilled metoprolol succinate ER 25 mg PO DAILY 90 tabs 3RF 90 days amlodipine 5 mg PO DAILY 90 tabs 3RF I10 - Essential (primary) hypertension Discontinued tizanidine Discontinued Reason: Doctor's Order 2 mg PO BEDTIME 30 days PRN 30 tabs 2RF muscle spasticity
== END 2024-09-05 14:22 | disposition home or self-care (01) ==
LOC: HO.HMCC 12:24
PROVIDERS: PCP Internal Medicine; Visit Provider Internal Medicine
DX: I10 Essential (primary) hypertension (principal); M85.80 Other specified disorders of bone density and structure, unspecified site; C34.90 Malignant neoplasm of unspecified part of unspecified bronchus or lung; E78.9 Disorder of lipoprotein metabolism, unspecified; N39.3 Stress incontinence (female) (male); M54.50 Low back pain, unspecified; R10.13 Epigastric pain; D56.3 Thalassemia minor

== ENCOUNTER 2024-09-05 12:24 | Outpatient (REF) | payer MEDICARE, MEDICAID, SELFPAY ==
[2024-09-05 16:14] LABS: MANUAL DIFF FLAG NO
[2024-09-05 16:26] LABS: Hematocrit 38.3 % (37.0-47.0); Hemoglobin 12.1 g/dl (12.0-16.0); Imm Gran Abs Auto 0.02 X10*3/uL (0.00-0.03); Imm Gran Pct Auto 0.2 % (0.0-0.4); Lymphocytes Absolute Auto 2.5 X10*3/uL (1.2-4.9); Mean Corpuscular HGB Conc 31.6 g/dl (31.0-35.0); Mean Corpuscular Hemoglobin 25.0 pg (27.0-33.0); Mean Corpuscular Volume 79.1 fL (80.0-98.0); NRBC Abs Auto 0.000 X10*3/uL (0.0-0.012); NRBC Pct Auto 0.0 /100WBC (0.0-0.2); Platelet Count 272 X10*3/uL (160-400); Red Blood Count 4.84 X10*6/uL (4.20-5.50); White Blood Count 8.1 X10*3/uL (4.8-10.8)
[2024-09-05 16:46] LABS: Alanine Aminotransferase 17 U/L (0-31); Albumin Level 4.2 g/dL (3.5-5.0); Alkaline Phosphatase 84 U/L (39-117); Anion Gap 12 (12-20); Aspartate Amino Transferase 29 U/L (5-31); Blood Urea Nitrogen 17 mg/dL (9-16); Calcium 9.3 mg/dL (8.4-10.2); Carbon Dioxide 26 mmol/L (22-29); Chloride 106 mmol/L (96-108); Estimated Glomerular Filt Rate > 60; Potassium 3.9 mmol/L (3.3-5.1); Sodium 140 mmol/L (135-145); Total Protein 7.4 g/dL (6.5-8.0)
== END 2024-09-05 12:25 | disposition home or self-care (01) ==
LOC: HO.HMGCLDS 12:24
PROVIDERS: PCP Internal Medicine; Visit Provider Internal Medicine
DX: I10 Essential (primary) hypertension (principal); M85.80 Other specified disorders of bone density and structure, unspecified site; E78.9 Disorder of lipoprotein metabolism, unspecified; N39.3 Stress incontinence (female) (male); M54.50 Low back pain, unspecified; R10.13 Epigastric pain; D56.3 Thalassemia minor; C34.90 Malignant neoplasm of unspecified part of unspecified bronchus or lung
CPT/HCPCS: 36415; 80053; 83721; 84443; 85025; 99212

== ENCOUNTER 2024-10-23 09:52 | Outpatient (AMB) | payer MEDICARE, MEDICAID, SELFPAY ==
[2024-10-23 10:23] VITALS: BP 128/60; PULSE 56; BMI 28.2
--- NOTE | 2024-10-23 10:23 | A.OFFVIS_ITS ---
Vital Signs 10/23/24 10:23 Height 4 ft 10.5 in Weight 137 lb 2.04 oz BMI 28.2 BP 128/60 Blood Pressure Location Rt brachial Position Sitting Pulse 56 Pulse Source Monitor Intake Visit Reasons: 6 mth f/up KM Therapeutic Sales Specialist Required: No Lidar Analyst: Lidar Analyst Present Allergies Qhwgwpn-[id number]-AbJ Reductase Inhibitor Allergy (Severe, Verified 10/23/24 10:27) Muscle cramps penicillin V Allergy (Unknown, Verified 10/23/24 10:27) unknown lorazepam (From ATIVAN) Adverse Reaction (Unknown, Verified 10/23/24 10:27) HALLUCINATIONS tizanidine Adverse Reaction (Unknown, Verified 10/23/24 10:27) Unknown Latex Gloves Allergy (Unknown, Uncoded 10/23/24 10:27) unknown Medication List - Last Reconciled 10/23/24 by Chastity Patel NP-C acetaminophen (Tylenol) 325 mg PO QID PRN amlodipine 5 mg PO DAILY ascorbic acid (vitamin C) 25 mg PO DAILY cholecalciferol (vitamin D3) (Vitamin D3) 25 mcg PO DAILY metoprolol succinate ER 25 mg PO DAILY 90 days omeprazole 20 mg PO DAILY 90 days solifenacin (Vesicare) 5 mg PO DAILY HPI HPI 6 mth f/up KM: Details: Christi is a 74-year-old male with past medical history of hypertension, hyperlipidemia who presents for follow-up. Today she reports that she has been doing well since her last visit in April. She says that she typically does well in the summer as she can be more active and work in her garden. She has not been having any chest discomfort at rest or with activity. She gets mildly short of breath if she over exerts. No shortness of breath at rest, PND, orthopnea or edema. No heart palpitations, presyncope, syncope recent falls. She does get lightheadedness and unsteadiness at times. She ambulates with a cane or walker. She stopped taking Zetia since it made her legs feel weak and she was more unsteady. is present. [facility] Medical History Lung cancer Hypertension Surgical History History of lung surgery H/O section Family History Mother Heart failure Father Heart attack Paternal Aunt Gallbladder cancer Social History Household Members: Spouse and Children Housing: House Are you a primary emergency care attendant to a significant other at home: No Do you presently have visiting nurse or other home services: No Alcohol intake: never Patient Tobacco Use Status: Never used Tobacco e-Cigarette/Vaping Use: Never Used service: No Current occupational status: retired Cognitive needs: No Hearing needs: No Vision needs: Yes Review of Systems Const All systems reviewed & are unremarkable except as noted in HPI and below ENT Details: unsteady at times Reports dizziness Card Denies chest pain, Denies chest pain at rest, Denies chest pain with activity, Denies rapid heart rate, Denies pedal edema, Denies edema, Denies leg edema, Denies lightheadedness, Denies palpitations, Reports dyspnea, Denies dyspnea on exertion and Denies orthopnea Resp Denies cough, Reports dyspnea and Denies dyspnea on exertion GI Denies hematochezia and Denies change in stool character Musc Details: uses walker and cane for balance. No recent falls Denies abnormal gait, Denies limited range of motion, Denies muscle cramps, Denies muscle weakness, Denies numbness, Denies radiating pain into limb, Denies stiffness and Denies tingling Neuro Denies abnormal gait, Reports dizziness, Denies numbness and Denies tingling Endo Denies palpitations Physical Exam Vital Signs: Last Vital Signs Pulse 56 10/23/24 10:23 BP 128/60 10/23/24 10:23 BMI result Body Mass Index 28.2 Const General: cooperative, healthy appearing, comfortable and no acute distress Orientation/consciousness: patient oriented x3 Neck Neck: Yes normal visual inspection Resp Effort & Inspection: normal respiratory effort Auscultation: clear to auscultation bilaterally, no crackles, no rales, no rhonchi and no wheezes Cardio Jugular venous distension: no JVD Rate: regular rate Rhythm: regular rhythm Heart sounds: S1 normal heart sound present, S2 normal heart sound present, no gallops, no murmurs and no rubs Neuro General: patient oriented x3 Extrem General: Yes normal to inspection and No no pedal edema Psych Appearance: grossly normal Mental Status: mental status grossly normal Speech and movement: Normal speech and movement present Office Procedures EKG Details: Today, read by me, sinus bradycardia, low voltage QRS, motion artifact, rate 56, Qtc 370ms [id number], Complete Assessment & Plan Assessment & Plan (1) Hypertension, essential: Code(s): I10 - Essential (primary) hypertension Category: Medical Plan: Blood pressure goal less than 130/80. Well controlled at this time. Continue amlodipine 5 mg daily and metoprolol XL 25 mg daily. Reviewed low-salt diet, weight control, activity as tolerated. (2) Syncope: Code(s): R55 - Syncope and collapse Category: Medical Plan: Daughter previously reported patient has history of vaso vagal syncope, with precipitating symptoms of nausea, vomiting and abdominal cramping - no episodes in the last year. Prior cardiac testing included Echocardiogram 11/06/2021 showed EF 69%, no regional wall motion abnormalities. Holter monitor done on 12/23/2021 showed sinus rhythm with average heart rate 81, heart rate range 48 to 145, 12% of the time heart rate greater than 100, rare SVE. Nuclear stress test was done 12/23/2021 which was normal. Reviewed ongoing need for recognition of precipitating factors, good hydration, sit and lay down if she has concerning symptoms, avoid hypotension. (3) Hyperlipidemia: Code(s): E78.5 - Hyperlipidemia, unspecified Category: Medical Plan: Gaines LDL goal less than 100. 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 She was started on Zetia last visit but stopped it due to reports of leg weakness and unsteadiness. Reviewed dietary measures to reduce cholesterol, increase physical activity if able. Plan Time spent on chart review, documentation, interview and assessment Coding Level of Care Code Est Pt Level 4 (31223) Complex EM visit Add On G2211 Diagnoses Hypertension, essential I10 Syncope R55 Hyperlipidemia E78.5 CPT Codes EKG - CPT: [id number], Complete ([id number]) Time Spent (min) 30
== END 2024-10-23 11:02 | disposition home or self-care (01) ==
LOC: HO.HCS 09:53
PROVIDERS: PCP Internal Medicine; Visit Provider Nurse Practitioner Family
DX: I10 Essential (primary) hypertension (principal); R55 Syncope and collapse; E78.5 Hyperlipidemia, unspecified
CPT/HCPCS: 93010; 99214; G2211

== ENCOUNTER → 2024-10-23 09:52 | Outpatient (BNVA) | payer MEDICARE, MEDICAID, SELFPAY | PROVIDERS: PCP Internal Medicine; Visit Provider Nurse Practitioner Family | DX: R55 Syncope and collapse (principal); I10 Essential (primary) hypertension; E78.5 Hyperlipidemia, unspecified | CPT/HCPCS: 93005; 99212 ==

== ENCOUNTER 2024-12-22 14:28 | Outpatient (AMB) | payer MEDICARE, MEDICAID, SELFPAY ==
--- NOTE | 2024-12-22 14:28 | A.OFFPC_ITS ---
Intake Visit Reasons: back pain Allergies Hfibswi-PTO-WdP Reductase Inhibitor Allergy (Severe, Verified 10/23/24 10:27) Muscle cramps penicillin V Allergy (Unknown, Verified 10/23/24 10:27) unknown lorazepam (From ATIVAN) Adverse Reaction (Unknown, Verified 10/23/24 10:27) HALLUCINATIONS tizanidine Adverse Reaction (Unknown, Verified 10/23/24 10:27) Unknown Latex Gloves Allergy (Unknown, Uncoded 10/23/24 10:27) unknown Medication List - Last Reconciled 12/22/24 by Cary Man MD acetaminophen (Tylenol) 325 mg PO QID PRN amlodipine 5 mg PO DAILY ascorbic acid (vitamin C) 25 mg PO DAILY cholecalciferol (vitamin D3) (Vitamin D3) 25 mcg PO DAILY metoprolol succinate ER 25 mg PO DAILY 90 days omeprazole 20 mg PO DAILY 90 days solifenacin (Vesicare) 5 mg PO DAILY Tobacco use date assessed: 03/08/24 Dental Screening Dental Screen Date: 03/08/24 HPI back pain HPI Details History of Present Illness The patient is a 74-year-old female presenting with back pain. Back Pain: - The patient reports experiencing signi ficant back pain located in the middle of her back. - She notes difficulty straightening up after sitting down, which is attributed to age-related changes and arthritis. - For pain management, she currently use s Tylenol. Osteopenia: - The patient has a diagnosis of osteope john, confirmed by a bone density scan in April, but does not have osteoporosis. - She takes vitamin D3. Diagnostic Results: - Bone density scan from April showed os teopenia. - Kidney function is normal. Problem List - Back pain - Osteopenia Plan - An X-ray of the back has been ordered to evaluate the patient's back pain. - The patient was advised to take Aleve (naproxen) with breakfast for 3-4 days as needed for severe pain. - The patient was instructed to monitor her blood pressure at home while taking Aleve, as her kidney function is normal. - A once-weekly medication will be presc ribed for osteopenia to slow the progression of bone loss, which the patient agreed to take. Fosamax - The plan is to continue this medicatio n for a couple of years and then repeat the bone density scan to monitor for changes. Review of Systems - General: No fever no chills - Neurological: No headaches no dizziness - Ear nose throat: No sore throat no hearing difficulty no ear pain - Cardiovascular: No syncope, no chest pain, no palpitations - Gastrointestinal: No nausea vomiting or diarrhea Physical Exam General: No acute distress HEENT: No acute findings Neck: Supple Respiratory system: Able to talk in full sentences, no audible wheeze Back: Pain located lower thoracic upper lumbar area Extremities: No new findings SENIOR TECHNICAL RECRUITER: Alert awake oriented x3 motor intact Skin: Normal turgor PFSH Medical History Lung cancer Hypertension Surgical History History of lung surgery H/O section Family History Mother Heart failure Father Heart attack Paternal Aunt Gallbladder cancer Social History Household Members: Spouse and Children Housing: House Are you a primary lawn care specialist to a significant other at home: No Do you presently have visiting nurse or other home services: No Alcohol intake: never Patient Tobacco Use Status: Never used Tobacco e-Cigarette/Vaping Use: Never Used service: No Current occupational status: retired Cognitive needs: No Hearing needs: No Vision needs: Yes Questionnaire Thrive Questionnaire Date Thrive assessed: 03/08/24 SEE-7 AMB Questionnaire SEE-7 Date SEE - 7 assessed: 03/08/24 Source: Developed by Drs. Trey Bourgeois, Tia Doan, Arnav Llanos and colleagues, with an educational reyna from [employer]. Physical exam (Primary Care) Tobacco/Smoking Status: Tobacco use Status Tobacco use date assessed 03/08/24 12/22/24 14:28 Patient Tobacco Use Status Never used Tobacco 12/22/24 14:28 e-Cigarette/Vaping Use Never Used 12/22/24 14:28 Thrive Assessment: Date of Thrive Assessment Date Thrive assessed 03/08/24 12/22/24 14:28 Coding Level of Care Code Est Pt Level 3 (42788) Diagnoses Chronic midline thoracic back pain M54.6; G89.29 Back pain location: thoracic back pain Chronicity: chronic Back pain laterality: midline Assessment & Plan Assessment & Plan (1) Back pain: Code(s): M54.9 - Dorsalgia, unspecified Category: Medical Qualifiers: Back pain location: thoracic back pain Chronicity: chronic Back pain laterality: midline Qualified Code(s): M54.6 - Pain in thoracic spine; G89.29 - Other chronic pain Plan Back Pain: - The patient reports experiencing significant back pain located in the middle of her back. - She notes difficulty straightening up after sitting down, which is attributed to age-related changes and arthritis. - For pain management, she currently uses Tylenol. Osteopenia: - The patient has a diagnosis of osteopenia, confirmed by a bone density scan in April, but does not have osteoporosis. - She takes vitamin D3. Diagnostic Results: - Bone density scan from April showed osteopenia. - Kidney function is normal. Problem List - Back pain - Osteopenia Plan - An X-ray of the back has been ordered to evaluate the patient's back pain. - The patient was advised to take Aleve (naproxen) with breakfast for 3-4 days as needed for severe pain. - The patient was instructed to monitor her blood pressure at home while taking Aleve, as her kidney function is normal. - A once-weekly medication will be prescribed for osteopenia to slow the progression of bone loss, which the patient agreed to take. Fosamax - The plan is to continue this medication for a couple of years and then repeat the bone density scan to monitor for changes. Orders: Orders XR thoracic spine 2V Today M54.9 - Dorsalgia, unspecified XR lumbar spine 2-3V Today M54.9 - Dorsalgia, unspecified Medications: New alendronate (Fosamax) 70 mg PO QWEEK 5 tabs 0RF 30 days
== END 2024-12-22 14:44 | disposition home or self-care (01) ==
LOC: HO.HMCC 14:28
PROVIDERS: PCP Internal Medicine; Visit Provider Internal Medicine
DX: M54.6 Pain in thoracic spine (principal); G89.29 Other chronic pain

== ENCOUNTER 2024-12-22 14:28 | Outpatient (REF) | payer MEDICARE, MEDICAID, SELFPAY ==
--- NOTE | ~2024-12-22 | XR_ITS ---
EXAMINATION: XR LUMBOSACRAL SPINE CLINICAL INFORMATION: M54.9 - Dorsalgia, unspecified COMPARISON: September 06, 2020 TECHNIQUE: Three views of the lumbosacral spine. FINDINGS: There are 5 nonrib-bearing lumbar segments. There is mild convex left curvature. L2-3 demonstrates moderate disc space narrowing and endplate osteophytes with subtle retrolisthesis, slightly increased from the prior. There is mild facet sclerosis at L4 L5 S1. XR/XR lumbar spine 2-3V IMPRESSION: Mild degenerative changes, no acute abnormality. Electronically signed by: Sandro Loera MD 12/22/2024 03:19 PM EST
--- NOTE | ~2024-12-22 | XR_ITS ---
EXAMINATION: XR THORACIC SPINE CLINICAL INFORMATION: M54.9 - Dorsalgia, unspecified COMPARISON: Previous chest x-ray June 2021 TECHNIQUE: 2 views of the thoracic spine were obtained. FINDINGS: Mild curvature of the lower thoracic spine to the left. Bone alignment is otherwise normal. No fracture or dislocation. Mild multilevel degenerative spondylosis and disc space narrowing. Elevated right hemidiaphragm. Postsurgical changes to the right lung. Paraspinal soft tissues otherwise unremarkable. XR/XR thoracic spine 2V IMPRESSION: Mild scoliosis and degenerative changes. Electronically signed by: Cheryl Albert MD 12/22/2024 03:35 PM YUE
== END 2024-12-22 14:29 | disposition home or self-care (01) ==
LOC: HO.HMGCX 14:28
PROVIDERS: PCP Internal Medicine; Visit Provider Internal Medicine
DX: M54.6 Pain in thoracic spine (principal); M85.80 Other specified disorders of bone density and structure, unspecified site; G89.29 Other chronic pain
CPT/HCPCS: 72070; 72100; 99212

== ENCOUNTER → 2024-12-22 14:53 | Outpatient (BNV) | payer MEDICARE, MEDICAID, SELFPAY | PROVIDERS: PCP Internal Medicine; Visit Provider Radiology Diagnostic Radiology | DX: M47.817 Spondylosis without myelopathy or radiculopathy, lumbosacral region (principal); M47.814 Spondylosis without myelopathy or radiculopathy, thoracic region; M41.84 Other forms of scoliosis, thoracic region | CPT/HCPCS: 72070; 72100 ==